=== PATIENT | female | born 1980 | race Caucasian/White ===

== ENCOUNTER 2017-04-08 11:45 | Emergency (ER) ==
[2017-04-08 11:57] VITALS: BP 123/87; TEMP 98.2; BMI 31.2
--- NOTE | 2017-04-08 12:23 | ED.PDOC ---
General ED Provider: Dr. FELIPE CHAVEZ JR Chief Complaint: Abdominal Pain Stated Complaint: SYMPTOMS SINCE 0700 RLQ PAIN, VOMITING[End]98.2 98 16 98% 123/ 87 7/10 VERY ANXIOUS. PTSD. STATES CALLED THE [facility] LAST NIGHT DUE TO ALOT GOING ON WITH EX AND CHILD.[ End ] Time Seen by Physician: 12:19 Mode of Arrival: Walk-In Information Source: Patient Exam Limitations: No limitations Primary Care Provider: [facility] Nursing and Triage Documentation Reviewed and Agree: No Reviewed sepsis parameters & appropriate labs ordered?: Yes System Inflammatory Response Syndrome: Not Applicable Sepsis Protocol: For patient's 13 years and over: Temp is 96.8 and below OR 101 and greater Pulse >90 BPM Resp >20/minute Acutely Altered Mental Status Are patient's symptoms suggestive of a new infection, such as: -Pneumonia -Skin, Soft Tissue -Endocarditis -UTI -Bone, Joint Infection -Implantable Device -Acute Abdominal Infection -Wound Infection -Meningitis -Blood Stream Catheter Infection -Unknown System Inflammatory Response Syndrome: Not Applicable Review of Systems - Review Of Systems Constitutional: Reports: Malaise Eyes: Reports: No symptoms Ears, Nose, Mouth, Throat: Reports: No symptoms Respiratory: Reports: No symptoms Cardiac: Reports: No symptoms GI: Reports: Abdominal pain, Diarrhea, Nausea, Vomiting : Reports: No symptoms Musculoskeletal: Reports: No symptoms Skin: Reports: No symptoms Neurological: Reports: No symptoms Endocrine: Reports: No symptoms Hematologic/Lymphatic: Reports: No symptoms All Other Systems: Other Past Medical History - Past Medical History Endocrine: Reports: None Cardiovascular: Reports: None Respiratory: Reports: None Hematological: Reports: None Gastrointestinal: Reports: None Genitourinary: Reports: None Neuro/Psych: Reports: Anxiety, Depression, PTSD Musculoskeletal: Reports: None Cancer: Reports: None Last Menstrual Period: NA Other Pertinent Past Medical History: hives with ultram - Surgical History General Surgical History: Reports: Hysterectomy ( DX LAP, HYST 2011), Cholecystectomy (2006), Tonsillectomy, Orthopedic (CLUB FOOT RIGHT CORRECTED) - Family History Family History: Reports: Unknown - Social History Smoking Status: Current every day smoker Hx Substance Use: No Alcohol Screening: None - Immunizations Tetanus Shot up to Date: Yes Physical Exam - Physical Exam Appearance: Well-appearing Pain Distress: Moderate Neck: Supple Respiratory: Airway patent, Breath sounds clear, Breath sounds equal, Respirations nonlabored Cardiovascular: RRR, Pulses normal, No rub, No murmur GI/: Soft, No masses, Tender (RLQ WITH REBOUND), Bowel sounds hypoactive Musculoskeletal: Normal strength, ROM intact, No edema, No calf tenderness Skin: Warm, Dry, Normal color Neurological: Sensation intact, Motor intact, Reflexes intact, Cranial nerves intact, Alert, Oriented Psychiatric: Anxious Re-Evaluation - Re-Evaluation Time of Re-Evaluation: 13:56 (patietn comfortable notes not sleeping well not doing well with PTSD, advised follwo up - informs RN not comfortale leaving( request mental health consult)) Status: Improved - Re-Evaluation Time of Re-Evaluation: 15:29 (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- will give two doses ambien) Status: Improved Critical Care Note - Critical Care Note Total Time (mins): 5 Course - Course Hematology/Chemistry: 04/08/17 12:30 04/08/17 12:30 Orders, Labs, Meds: Lab Review 04/08/17 04/08/17 04/08/17 12:30 12:30 12:30 WBC 7.57 RBC 4.79 Hgb 14.1 Hct 41.6 MCV 86.8 MCH 29.4 MCHC 33.9 RDW Coeff of Gricel 13.2 Plt Count 352 Immature Gran % (Auto) 0.1 Neut % (Auto) 68.5 Lymph % (Auto) 21.9 Garza % (Auto) 9.0 Eos % (Auto) 0.4 Baso % (Auto) 0.1 Immature Gran # (Auto) 0.0 Neut # 5.2 Lymph # 1.7 Garza # 0.7 Eos # 0.0 Baso # 0.0 Sodium 142 Potassium 3.1 L Chloride 105 Carbon Dioxide 23 Anion Gap 17.1 BUN 9 Creatinine 0.82 Estimated GFR (MDRD) 79.00 BUN/Creatinine Ratio 10.97 Glucose 85 Calcium 9.7 Total Bilirubin 0.5 AST 15 ALT 12 Alkaline Phosphatase 81 Total Protein 8.0 Albumin 4.3 Globulin 3.7 Albumin/Globulin Ratio 1.16 Amylase 19 L Lipase 20 Procalcitonin < 0.05 TSH Urine Color Urine Clarity Urine pH Ur Specific [place] Urine Protein Urine Glucose (UA) Urine Ketones Urine Blood Urine Nitrite Urine Bilirubin Urine Urobilinogen Ur Leukocyte Esterase Urine Microscopic RBC Ur Squamous Epith Cells Urine Mucus Salicylate Level mg/dL Urine Opiates Screen Ur Oxycodone Screen Urine Methadone Screen Ur Propoxyphene Screen Acetaminophen Ur Barbiturates Screen U Tricyclic Antidepress Ur Phencyclidine Scrn Ur Amphetamine Screen U Methamphetamines Scrn U Benzodiazepines Scrn Urine Cocaine Screen U Cannabinoids Screen Plasma/Serum Alcohol H. pylori IgG Antibody 04/08/17 04/08/17 04/08/17 12:30 12:30 12:30 WBC RBC Hgb Hct MCV MCH MCHC RDW Coeff of Gricel Plt Count Immature Gran % (Auto) Neut % (Auto) Lymph % (Auto) Garza % (Auto) Eos % (Auto) Baso % (Auto) Immature Gran # (Auto) Neut # Lymph # Garza # Eos # Baso # Sodium Potassium Chloride Carbon Dioxide Anion Gap BUN Creatinine Estimated GFR (MDRD) BUN/Creatinine Ratio Glucose Calcium Total Bilirubin AST ALT Alkaline Phosphatase Total Protein Albumin Globulin Albumin/Globulin Ratio Amylase Lipase Procalcitonin TSH 0.914 Urine Color Yellow Urine Clarity Clear Urine pH 5.5 Ur Specific [place] 1.020 Urine Protein Negative Urine Glucose (UA) Negative Urine Ketones 2+ Urine Blood Trace-lysed Urine Nitrite Negative Urine Bilirubin 1+ Urine Urobilinogen 0.2 Ur Leukocyte Esterase Negative Urine Microscopic RBC 2-5 Ur Squamous Epith Cells Not present Urine Mucus 3+ Salicylate Level mg/dL 11.3 Urine Opiates Screen Ur Oxycodone Screen Urine Methadone Screen Ur Propoxyphene Screen Acetaminophen 8 L Ur Barbiturates Screen U Tricyclic Antidepress Ur Phencyclidine Scrn Ur Amphetamine Screen U Methamphetamines Scrn U Benzodiazepines Scrn Urine Cocaine Screen U Cannabinoids Screen Plasma/Serum Alcohol < 10.0 H. pylori IgG Antibody Negative 04/08/17 12:30 WBC RBC Hgb Hct MCV MCH MCHC RDW Coeff of Gricel Plt Count Immature Gran % (Auto) Neut % (Auto) Lymph % (Auto) Garza % (Auto) Eos % (Auto) Baso % (Auto) Immature Gran # (Auto) Neut # Lymph # Garza # Eos # Baso # Sodium Potassium Chloride Carbon Dioxide Anion Gap BUN Creatinine Estimated GFR (MDRD) BUN/Creatinine Ratio Glucose Calcium Total Bilirubin AST ALT Alkaline Phosphatase Total Protein Albumin Globulin Albumin/Globulin Ratio Amylase Lipase Procalcitonin TSH Urine Color Urine Clarity Urine pH Ur Specific [place] Urine Protein Urine Glucose (UA) Urine Ketones Urine Blood Urine Nitrite Urine Bilirubin Urine Urobilinogen Ur Leukocyte Esterase Urine Microscopic RBC Ur Squamous Epith Cells Urine Mucus Salicylate Level mg/dL Urine Opiates Screen Positive Ur Oxycodone Screen Negative Urine Methadone Screen Negative Ur Propoxyphene Screen Negative Acetaminophen Ur Barbiturates Screen Negative U Tricyclic Antidepress Negative Ur Phencyclidine Scrn Negative Ur Amphetamine Screen Negative U Methamphetamines Scrn Negative U Benzodiazepines Scrn Negative Urine Cocaine Screen Negative U Cannabinoids Screen Negative Plasma/Serum Alcohol H. pylori IgG Antibody Orders Category Date Time Status EKG-(ED ONLY) Stat CARDIO 04/08/17 13:54 Completed ED IV/MEDIPORT/POWERPORT .ONCE EMERGENCY 04/08/17 12:24 Active ACETAMINOPHEN Stat LAB 04/08/17 12:30 Completed AMYLASE Stat LAB 04/08/17 12:30 Completed BLOOD ALCOHOL Stat LAB 04/08/17 12:30 Completed CBC W/ AUTO DIFF Stat LAB 04/08/17 12:30 Completed COMPREHENSIVE METABOLIC PANEL Stat LAB 04/08/17 12:30 Completed DRUG SCREEN, URINE, RAPID Stat LAB 04/08/17 12:30 Completed H. PYLORI SCREEN Stat LAB 04/08/17 12:30 Completed LIPASE Stat LAB 04/08/17 12:30 Completed PROCALCITONIN Stat LAB 04/08/17 12:30 Completed SALICYLATE Stat LAB 04/08/17 12:30 Completed THYROID STIMULATING HORMONE Stat LAB 04/08/17 12:30 Completed URINALYSIS C & S IF INDICATED Stat LAB 04/08/17 12:30 Completed 0.9 % Sodium Chloride [Saline Flush] MEDS 04/08/17 12:24 Active 1 syr IVF PRN PRN Morphine Sulfate [Morphine 2 mg/ml Syringe] MEDS 04/08/17 12:55 Discontinued 2 mg IM ONCE STA Morphine Sulfate [Morphine 2 mg/ml Syringe] MEDS 04/08/17 12:24 Discontinued 2 mg IVP ONCE STA Ondansetron HCl/Pf [Zofran 4 mg/2 ml] MEDS 04/08/17 12:55 Discontinued 4 mg IM ONCE STA Ondansetron HCl/Pf [Zofran 4 mg/2 ml] MEDS 04/08/17 12:24 Discontinued 4 mg IVP ONCE STA Sodium Chloride 0.9% [Sodium Chloride] 1,000 ml MEDS 04/08/17 13:[address] ABDOMEN/PELVIS WO CONTRAST Stat RADS 04/08/17 12:24 Completed Medications Generic Name Dose Route Start Last Admin Trade Name Freq PRN Reason Stop Dose Admin Sodium Chloride 1 syr 04/08/17 12:24 Saline Flush IVF PRN PRN To flush IV Discontinued Medications Generic Name Dose Route Start Last Admin Trade Name Freq PRN Reason Stop Dose Admin Sodium Chloride 1,000 mls @ 1,000 mls/hr 04/08/17 13:32 04/08/17 13:50 Sodium Chloride IV 04/08/17 14:31 Not Given BOLUS STA Morphine Sulfate 2 mg 04/08/17 12:24 04/08/17 14:24 Morphine 2 Mg/Ml Syringe IVP 04/08/17 12:25 Not Given ONCE STA Morphine Sulfate 2 mg 04/08/17 12:55 04/08/17 12:55 Morphine 2 Mg/Ml Syringe IM 04/08/17 12:56 2 mg ONCE STA Administration Ondansetron HCl 4 mg 04/08/17 12:24 04/08/17 14:24 Zofran 4 Mg/2 Ml IVP 04/08/17 12:25 Not Given ONCE STA Ondansetron HCl 4 mg 04/08/17 12:55 04/08/17 12:55 Zofran 4 Mg/2 Ml IM 04/08/17 12:56 4 mg ONCE STA Administration Vital Signs: Temp Pulse Resp BP Pulse Ox 04/08/17 11:51 98.2 F 98 H 16 123/87 98 Departure - Departure Time of Disposition: 13:51 Disposition: HOME SELF-CARE Discharge Problem: Abdominal pain, Gastroenteritis Instructions: Gastroenteritis (ED), Acute Nausea and Vomiting (ED), Acute Abdominal Pain (ED) Condition: Good Pt referred to PMD for follow-up: Yes Additional Instructions: clear liquids for 8 hours after nausea or vomiting phenergan for nausea return if worse follow [facility] as [facility] Prescriptions: Promethazine HCl [Phenergan Tab] 25 mg PO QID PRN #12 tablet PRN Reason: Nausea / Vomiting Zolpidem Tartrate [Ambien] 5 mg PO PCHS PRN #4 tablet PRN Reason: Insomnia Allergies/Adverse Reactions: Allergies ciprofloxacin [From Cipro] Adverse Reaction (Verified 04/08/17 11:49) tramadol [From Ultram] Adverse Reaction (Verified 04/08/17 11:49) Home Medications: Ambulatory Orders Citalopram Hydrobromide [Celexa] 40 mg PO DAILY 04/08/17 Promethazine HCl [Phenergan Tab] 25 mg PO QID PRN #12 tablet 04/08/17 Zolpidem Tartrate [Ambien] 5 mg PO PCHS PRN #4 tablet 04/08/17
[2017-04-08 12:38] LABS: BASOPHILS % (AUTO) 0.1 % (0.0-3.0); EOSINOPHILS % (AUTO) 0.4 % (0.0-7.0); HEMATOCRIT 41.6 % (37.0-47.0); HEMOGLOBIN 14.1 g/dl (12.0-16.0); IMMATURE GRANULOCYTE % (AUTO) 0.1 % (0.0-5.0); LYMPHOCYTES # (AUTO) 1.7 K/uL (0.60-3.4); LYMPHOCYTES % (AUTO) 21.9 (10.0-50.0); MEAN CORPUSCULAR HEMOGLOBIN 29.4 pg (27.0-31.0); MEAN CORPUSCULAR HGB CONC 33.9 (31.8-35.4); MEAN CORPUSCULAR VOLUME 86.8 fl (81.0-99.0); MONOCYTES # (AUTO) 0.7 K/uL (0.4-2.0); NEUTROPHILS # (AUTO) 5.2 K/ul (2.0-6.9); NEUTROPHILS % (AUTO) 68.5; PLATELET COUNT 352 10^3/uL (140-440); RED BLOOD COUNT 4.79 10^6/ul (4.20-5.40); WHITE BLOOD COUNT 7.57 K/ul (4.6-10.2)
[2017-04-08 12:42] LABS: BILIRUBIN,URINE 1+ (NEGATIVE); KETONES,URINE 2+ (NEGATIVE); LEUKOCYTE ESTERASE ,URINE Negative (NEGATIVE); NITRITE,URINE Negative (NEGATIVE); PH,URINE 5.5 (5-9); PROTEIN,URINE Negative (NEGATIVE); URINE, BLOOD Trace-lysed (NEGATIVE)
[2017-04-08 12:45] LABS: ADD URINE MICROSCOPIC YES
[2017-04-08 12:55] LABS: ALBUMIN 4.3 g/dL (3.4-5.0); ALBUMIN/GLOBULIN RATIO 1.16; ANION GAP 17.1; BILIRUBIN,TOTAL 0.5 mg/dL (0.00-1.20); BUN/CREATININE RATIO 10.97; CALCIUM 9.7 mg/dL (8.2-10.2); CREATININE 0.82 mg/dL (0.60-1.30); POTASSIUM 3.1 mmol/L (3.5-5.10)
[2017-04-08] MEDS ORDERED: MORPHINE 2 MG/ML SYRINGE IM STA (12:55)
[2017-04-08] MEDS ORDERED: ZOFRAN 4 MG/2 ML IM STA (12:55)
[2017-04-08 12:59] LABS: H. PYLORI ANTIBODY NEGATIVE (NEGATIVE); H.PYLORI INTERNAL QC INTERNAL QC VALID
[2017-04-08] MEDS: MORPHINE 2 MG/ML SYRINGE IVP STA ×2 (12:59→14:24)
[2017-04-08] MEDS: ZOFRAN 4 MG/2 ML IVP STA ×2 (12:59→14:24)
--- NOTE | 2017-04-08 13:13 | CT ---
EXAM: CT of the abdomen pelvis without contrast History: Abdominal pain. Technique: Multiplanar CT images through the abdomen pelvis were obtained without the administration of IV contrast Findings: Lung bases are free of consolidation. No acute osseous abnormalities. No renal stones and no hydronephrosis. Status post cholecystectomy. No focal liver or splenic lesio ns. No peripancreatic inflammation. Adrenal glands are unremarkable. No dilated loops of bowel. T he appendix is not dilated or inflamed. No free air. Bladder is not well distended. No bladder wal l thickening. No ascites. No perirectal inflammation. Uterus is not seen. Impression: No acute intra-abdominal or pelvic process.
[2017-04-08] MEDS ORDERED: SODIUM CHLORIDE 1,000 ML IV STA (13:32)
[2017-04-08 14:09] LABS: COCAIN SCREEN,URINE NEGATIVE (NEGATIVE)
[2017-04-08 14:34] LABS: ACETAMINOPHEN 8 ug/ml (10-30); SALICYLATE 11.3 mg/dL (2.8-20.0)
== END 2017-04-08 15:45 | disposition home or self-care (01) ==
LOC: ED 11:45
DX: K52.9 Noninfective gastroenteritis and colitis, unspecified (principal); R10.31 Right lower quadrant pain; G47.00 Insomnia, unspecified; F17.210 Nicotine dependence, cigarettes, uncomplicated
CPT/HCPCS: 36415; 80053; 80306; 80307; 81001; 82150; 83690; 84145; 84443; 85025; 86677; 93005; 93010; 96372; 99283

== ENCOUNTER 2017-04-17 08:58 | Emergency (ER) ==
[2017-04-17 09:07] VITALS: BP 138/88; TEMP 96.9; BMI 32.8
[2017-04-17] MEDS ORDERED: DUONEB NEB STA (09:09)
[2017-04-17] MEDS ORDERED: PREDNISONE PO STA (09:09)
--- NOTE | 2017-04-17 10:12 | DI ---
EXAM: Chest two view, frontal and lateral views. HISTORY: Cough, chest congestion. COMPARISON: None available. FINDINGS: The heart size is normal. There is no pulmonary vascular congestion. The lungs are clear . No pleural effusion or pneumothorax is seen. No acute osseous abnormality identified. Clips seen in the right upper abdomen. IMPRESSION: No acute cardiopulmonary process.
--- NOTE | 2017-04-24 18:14 | ED.PDOC ---
General ED Provider: Dr. OSIEL GONZALEZ Chief Complaint: Respiratory Complaint Stated Complaint: cough, flu like symptoms Time Seen by Physician: 09:00 Mode of Arrival: Walk-In Information Source: Patient Exam Limitations: No limitations Primary Care Provider: JOEL CARMEN Nursing and Triage Documentation Reviewed and Agree: Yes Reviewed sepsis parameters & appropriate labs ordered?: Yes System Inflammatory Response Syndrome: Not Applicable Sepsis Protocol: For patient's 13 years and over: Temp is 96.8 and below OR 101 and greater Pulse >90 BPM Resp >20/minute Acutely Altered Mental Status Are patient's symptoms suggestive of a new infection, such as: -Pneumonia -Skin, Soft Tissue -Endocarditis -UTI -Bone, Joint Infection -Implantable Device -Acute Abdominal Infection -Wound Infection -Meningitis -Blood Stream Catheter Infection -Unknown System Inflammatory Response Syndrome: Not Applicable Respiratory Complaint Exam - Respiratory Complaint/Exam Onset/Duration: 1 day Symptoms Are: Still present Timing: Intermittent Initial Severity: Moderate Current Severity: Mild Location: Nose, Throat, Chest Character: Reports: Non-productive cough Aggravating: Reports: URI Alleviating: Reports: Spontaneous resolution Associated Signs and Symptoms: Reports: URI, Nasal congestion. Denies: Rapid breathing, Dyspnea, Fever, Chills, Chest pain, Pleuritic chest pain, Wheezing, Hemoptysis, Dizziness, Calf pain, Calf swelling, Edema, Hoarseness, Sinus discomfort, Vomiting, Sore throat, Weight loss, Decreased oral intake, Increased thirst, Increased appetite, Increased urination Related History: Reports: Similar episode History of Healthcare-Acquired Pneumonia: No Related Surgical History: Reports: None Pulmonary Embolism Risk Factors: None Cardiac Risk Factors: Reports: None Pseudomonas Risk Factors: Reports: None Tuberculosis Risk Factors: Reports: None Status Asthmaticus Risk Factors: Reports: None Home Oxygen Use: No Recent Stress Test: No Recent Echo/LV Function: No Current Antibiotic Use: No Current Asthma Medication Use: No Respiratory Distress: None Inadequate Respiratory Effort: No Dysphagia Present: No Stridor Present: No JVD Present: No Retractions: Not Present Grunting Respirations: No Kussmaul Respirations: No Differential Diagnoses: Pneumonia, Bronchitis Review of Systems - Review Of Systems Constitutional: Reports: No symptoms Eyes: Reports: No symptoms Ears, Nose, Mouth, Throat: Reports: No symptoms Respiratory: Reports: Cough Cardiac: Reports: No symptoms GI: Reports: No symptoms : Reports: No symptoms Musculoskeletal: Reports: No symptoms Skin: Reports: No symptoms Neurological: Reports: No symptoms Endocrine: Reports: No symptoms Hematologic/Lymphatic: Reports: No symptoms All Other Systems: Reviewed and Negative Past Medical History - Past Medical History Previously Healthy: Yes Endocrine: Reports: None Cardiovascular: Reports: None Respiratory: Reports: None Hematological: Reports: None Gastrointestinal: Reports: None Genitourinary: Reports: None Neuro/Psych: Reports: Anxiety, Depression, PTSD Musculoskeletal: Reports: None Cancer: Reports: None Last Menstrual Period: n/a Other Pertinent Past Medical History: hives with ultram - Surgical History General Surgical History: Reports: Hysterectomy ( DX LAP, HYST 2011), Cholecystectomy (2005), Tonsillectomy, Orthopedic (CLUB FOOT RIGHT CORRECTED) - Family History Family History: Reports: Unknown - Social History Smoking Status: Current every day smoker Hx Substance Use: No Alcohol Screening: None Physical Exam - Physical Exam Appearance: Well-appearing, No pain distress, Well-nourished Eyes: FARHAN, EOMI, Conjunctiva clear ENT: Ears normal, Nose normal, Oropharynx normal Respiratory: Rhonchi Cardiovascular: RRR, Pulses normal, No rub, No murmur GI/: Soft, Nontender, No masses, Bowel sounds normal, No Organomegaly Musculoskeletal: Normal strength, ROM intact, No edema, No calf tenderness Skin: Warm, Dry, Normal color Neurological: Sensation intact, Motor intact, Reflexes intact, Cranial nerves intact, Alert, Oriented Psychiatric: Affect appropriate, Mood appropriate Interpretation - Radiology Interpretation Radiology Interpretation By: Radiologist Radiology Results: No acute changes Critical Care Note - Critical Care Note Total Time (mins): 0 Course - Course Hematology/Chemistry: 04/17/17 09:20 04/17/17 09:20 Orders, Labs, Meds: Lab Review 04/17/17 04/17/17 04/17/17 09:13 09:20 09:20 WBC 5.56 RBC 4.10 L Hgb 12.1 Hct 36.9 L MCV 90.0 MCH 29.5 MCHC 32.8 RDW Coeff of Gricel 13.3 Plt Count 276 Immature Gran % (Auto) 0.2 Neut % (Auto) 58.1 Lymph % (Auto) 27.5 [place] % (Auto) 10.6 H Eos % (Auto) 3.2 Baso % (Auto) 0.4 Immature Gran # (Auto) 0.0 Neut # 3.2 Lymph # 1.5 [place] # 0.6 Eos # 0.2 Baso # 0.0 Sodium 143 Potassium 4.0 Chloride 106 Carbon Dioxide 32 Anion Gap 9.0 BUN 9 Creatinine 0.81 Estimated GFR (MDRD) 80.00 BUN/Creatinine Ratio 11.11 Glucose 81 Lactic Acid Calcium 8.8 Total Bilirubin < 0.3 AST 11 L ALT 14 Alkaline Phosphatase 83 Total Protein 6.5 Albumin 3.5 Globulin 3.0 Albumin/Globulin Ratio 1.17 Procalcitonin Influenza A (Rapid) Negative by naat Influenza B (Rapid) Negative by naat 04/17/17 04/17/17 09:20 09:20 WBC RBC Hgb Hct MCV MCH MCHC RDW Coeff of Gricel Plt Count Immature Gran % (Auto) Neut % (Auto) Lymph % (Auto) [place] % (Auto) Eos % (Auto) Baso % (Auto) Immature Gran # (Auto) Neut # Lymph # [place] # Eos # Baso # Sodium Potassium Chloride Carbon Dioxide Anion Gap BUN Creatinine Estimated GFR (MDRD) BUN/Creatinine Ratio Glucose Lactic Acid 8.6 Calcium Total Bilirubin AST ALT Alkaline Phosphatase Total Protein Albumin Globulin Albumin/Globulin Ratio Procalcitonin < 0.05 Influenza A (Rapid) Influenza B (Rapid) Orders Category Date Time Status EKG-(ED ONLY) Stat CARDIO 04/17/17 09:06 Completed NEBULIZER TREATMENT Stat CARDIO 04/17/17 09:10 Completed ED IV/MEDIPORT/POWERPORT .ONCE EMERGENCY 04/17/17 09:06 Inactive BLOOD CULTURE Stat LAB 04/17/17 09:45 Completed CBC W/ AUTO DIFF Stat LAB 04/17/17 09:20 Completed COMPREHENSIVE METABOLIC PANEL Stat LAB 04/17/17 09:20 Completed LACTIC ACID Stat LAB 04/17/17 09:20 Completed MOLECULAR FLU A/B Stat LAB 04/17/17 09:13 Completed PROCALCITONIN Stat LAB 04/17/17 09:20 Completed 0.9 % Sodium Chloride [Saline Flush] MEDS 04/17/17 09:07 Discontinued 1 syr IVF PRN PRN Ipratropium/Albuterol Neb [Duoneb] MEDS 04/17/17 09:09 Discontinued 1 vial NEB ONCE STA Prednisone MEDS 04/17/17 09:09 Discontinued 40 mg PO ONCE STA CHEST, 2 VIEWS PA & LAT Stat RADS 04/17/17 09:06 Completed Medications Discontinued Medications Generic Name Dose Route Start Last Admin Trade Name Freq PRN Reason Stop Dose Admin Albuterol/Ipratropium 1 vial 04/17/17 09:09 04/17/17 09:27 Duoneb NEB 04/17/17 09:10 1 vial ONCE STA Administration Prednisone 40 mg 04/17/17 09:09 04/17/17 09:49 Prednisone PO 04/17/17 09:10 40 mg ONCE STA Administration Sodium Chloride 1 syr 04/17/17 09:07 Saline Flush IVF PRN PRN To flush IV Vital Signs: Temp Pulse Resp BP Pulse Ox 04/17/17 08:59 96.9 F L 77 16 138/88 95 Departure - Departure Time of Disposition: 18:15 Disposition: HOME SELF-CARE Discharge Problem: Viral syndrome Instructions: Acute Bronchitis (ED) Condition: Good Pt referred to PMD for follow-up: No Additional Instructions: tussionex 5 ml two times a day as needed for cough (5 days worth) amoxicillin 500 mg one tablet every 8 hours until gone. (#24) follow up with the clinic or doctor of choice for all non-emergent problems. Allergies/Adverse Reactions: Allergies ciprofloxacin [From Cipro] Adverse Reaction (Verified 04/22/17 23:20) tramadol [From Ultram] Adverse Reaction (Verified 04/22/17 23:20) Home Medications: Ambulatory Orders Citalopram Hydrobromide [Celexa] 40 mg PO DAILY 04/08/17 Cyclobenzaprine HCl [Flexeril] 10 mg PO DAILY PRN #10 tablet 04/22/17 Disposition Discussed With: Patient
== END 2017-04-17 11:38 | disposition home or self-care (01) ==
LOC: ED 08:58
DX: B34.9 Viral infection, unspecified (principal); F17.210 Nicotine dependence, cigarettes, uncomplicated
CPT/HCPCS: 36415; 80053; 83605; 84145; 85025; 87040; 87502; 93005; 93010; 94640; 99283

== ENCOUNTER 2017-04-22 23:15 | Emergency (ER) ==
[2017-04-22 23:19] VITALS: BP 139/93; TEMP 97.1; BMI 32.2
--- NOTE | 2017-04-22 23:45 | ED.PDOC ---
General ED Provider: Dr. ASHLEY MEAD Chief Complaint: Extremity Pain/Injury Stated Complaint: Patient states that one hour ago she twisted her right lower leg when she when to turn. Took Motrin but pain still persists. Time Seen by Physician: 23:42 Mode of Arrival: Walk-In Information Source: Patient Exam Limitations: No limitations ( ) Primary Care Provider: [facility] Nursing and Triage Documentation Reviewed and Agree: Yes (.) Reviewed sepsis parameters & appropriate labs ordered?: No (not applicable. ) System Inflammatory Response Syndrome: Not Applicable Sepsis Protocol: For patient's 13 years and over: Temp is 96.8 and below OR 101 and greater Pulse >90 BPM Resp >20/minute Acutely Altered Mental Status Are patient's symptoms suggestive of a new infection, such as: -Pneumonia -Skin, Soft Tissue -Endocarditis -UTI -Bone, Joint Infection -Implantable Device -Acute Abdominal Infection -Wound Infection -Meningitis -Blood Stream Catheter Infection -Unknown Musculoskeletal Complaint Exam - Lower Extremity Complaint/Exam Location of Pain: Reports: Right, Leg Mechanism of Injury: Reports: Other (only twisted while turning with no report of fall or dislocation.) Onset/Duration: 1 hour ago Symptoms Are: Still present Onset of Pain: Reports: Immediate Initial Severity: Severe Current Severity: Moderate Location: Reports: Discrete (mid to lower hardin.) Character: Reports: Aching, Throbbing Alleviating: Reports: None Aggravating: Reports: Movement Able to Bear Weight: Yes (but painful ) Associated Signs and Symptoms: Denies: Swelling, Redness, Bruising, Fever, Weakness, Numbness, Tingling DVT Risk Factors: Reports: None Septic Arthritis Risk Factors: Reports: None Lower Extremity Findings: Present: Tenderness (mid to lower calf musle. ). Absent: Swelling, Ecchymosis, Abnormal contour, Rotation, Ligamentous instability, Laceration, Erythema, Warmth, Blisters Compartment Syndrome Risk Factors: Present: Pain. Absent: Paralysis, Pallor, Pulselessness, Paresthesias Lower Extremities Picture: 1 - Tenderness to palpation. Differential Diagnoses: Strain, Sprain Review of Systems - Review Of Systems Constitutional: Reports: No symptoms Eyes: Reports: No symptoms Ears, Nose, Mouth, Throat: Reports: No symptoms Respiratory: Reports: No symptoms Cardiac: Reports: No symptoms GI: Reports: No symptoms : Reports: No symptoms Musculoskeletal: Reports: Muscle pain (right lower calf musle.) Skin: Reports: No symptoms Neurological: Reports: No symptoms Endocrine: Reports: No symptoms Hematologic/Lymphatic: Reports: No symptoms All Other Systems: Reviewed and Negative Past Medical History - Past Medical History Endocrine: Reports: None Cardiovascular: Reports: None Respiratory: Reports: None Hematological: Reports: None Gastrointestinal: Reports: None Genitourinary: Reports: None Neuro/Psych: Reports: Anxiety, Depression, PTSD Musculoskeletal: Reports: None Cancer: Reports: None Last Menstrual Period: HYSTERECTOMY Other Pertinent Past Medical History: hives with ultram - Surgical History General Surgical History: Reports: Hysterectomy ( DX LAP, HYST 2011), Cholecystectomy (2005), Tonsillectomy, Orthopedic (CLUB FOOT RIGHT CORRECTED) - Family History Family History: Reports: Unknown - Social History Smoking Status: Current every day smoker, Heavy tobacco smoker Hx Substance Use: No Alcohol Screening: None - Immunizations Tetanus Shot up to Date: Yes Physical Exam - Physical Exam Appearance: Well-appearing Ill-appearing: None Pain Distress: Moderate Neck: Supple Respiratory: Airway patent Musculoskeletal: ROM intact, No edema, Calf tenderness (mid to lower posterior ) Skin: Warm, Dry Neurological: Sensation intact, Alert, Oriented Psychiatric: Anxious Interpretation - Radiology Interpretation Radiology Interpretation By: ED Physician Radiology Results: Negative Exam Interpreted: Other (Tib FIB ) Critical Care Note - Critical Care Note Total Time (mins): 0 Course - Course Orders, Labs, Meds: Orders Category Date Time Status Ice [ED APPLY ICE AFFECTED AREA] .ONCE EMERGENCY 04/22/17 23:41 Active Cyclobenzaprine HCl [Flexeril] MEDS 04/23/17 00:02 Discontinued 10 mg .ROUTE .STK-MED ONE Cyclobenzaprine HCl [Flexeril] MEDS 04/22/17 23:58 Discontinued 10 mg PO ONCE STA TIBIA/FIBULA, RIGHT 2 VIEW Stat RADS 04/22/17 23:41 Completed Medications Discontinued Medications Generic Name Dose Route Start Last Admin Trade Name Freq PRN Reason Stop Dose Admin Cyclobenzaprine HCl 10 mg 04/22/17 23:58 04/23/17 00:05 Flexeril PO 04/22/17 23:59 10 mg ONCE STA Administration Vital Signs: Temp Pulse Resp BP Pulse Ox 04/22/17 23:15 97.1 F L 89 18 139/93 H 98 Departure - Departure Time of Disposition: 23:59 Disposition: HOME SELF-CARE Discharge Problem: Injury of lower extremity Strain of right soleus muscle Qualifiers: Encounter type: initial encounter Qualified Code(s): S86.111A - Strain of other muscle(s) and tendon(s) of posterior muscle group at lower leg level, right leg, initial encounter Instructions: Muscle Cramp (ED) Condition: Good Pt referred to PMD for follow-up: Yes Additional Instructions: Take pain medication and muscle relaxers as prescribed Follow up with PCP in the next two -five days. Prescriptions: Cyclobenzaprine HCl [Flexeril] 10 mg PO DAILY PRN #10 tablet PRN Reason: spasms Ibuprofen [Motrin] 600 mg PO Q6H PRN #20 tablet PRN Reason: Analgesia Allergies/Adverse Reactions: Allergies ciprofloxacin [From Cipro] Adverse Reaction (Verified 04/22/17 23:20) tramadol [From Ultram] Adverse Reaction (Verified 04/22/17 23:20) Home Medications: Ambulatory Orders Citalopram Hydrobromide [Celexa] 40 mg PO DAILY 04/08/17 Zolpidem Tartrate [Ambien] 5 mg PO PCHS PRN #4 tablet 04/08/17 Cyclobenzaprine HCl [Flexeril] 10 mg PO DAILY PRN #10 tablet 04/22/17 Ibuprofen [Motrin] 600 mg PO Q6H PRN #20 tablet 04/22/17 Disposition Discussed With: Patient
[2017-04-22] MEDS ORDERED: FLEXERIL PO STA (23:58)
[2017-04-23] MEDS ORDERED: FLEXERIL ONE (00:02)
--- NOTE | 2017-04-23 07:50 | DI ---
EXAM: Two views of the right lower leg HISTORY: Twisting injury. COMPARISON: None FINDINGS: There is no lytic or blastic lesion of the right lower leg. Periosteal reaction is not pre sent. There is no displaced fracture or dislocation. The soft tissues are unremarkable. Limited vie ws of the joint spaces are unremarkable. IMPRESSION: No acute abnormality of the right lower leg.
== END 2017-04-23 00:20 | disposition home or self-care (01) ==
LOC: ED 23:15
DX: S86.111A Strain of other muscle(s) and tendon(s) of posterior muscle group at lower leg level, right leg, initial encounter (principal); X50.1XXA Overexertion from prolonged static or awkward postures, initial encounter; F17.210 Nicotine dependence, cigarettes, uncomplicated
CPT/HCPCS: 99282

== ENCOUNTER 2017-05-10 17:58 | Emergency (ER) ==
[2017-05-10 18:12] VITALS: BP 147/93; TEMP 97.6; BMI 32.5
--- NOTE | 2017-05-10 18:53 | ED.PDOC ---
General ED Provider: Dr. TOMASA BUENO-ER Chief Complaint: Sore Throat Stated Complaint: my nose is running, marilyn had a nose bleed this am, my head hurts and my throat is sore Time Seen by Physician: 18:10 Mode of Arrival: Walk-In Information Source: Patient Exam Limitations: No limitations Primary Care Provider: JULIO MARTINEZ Nursing and Triage Documentation Reviewed and Agree: Yes Reviewed sepsis parameters & appropriate labs ordered?: Yes System Inflammatory Response Syndrome: Not Applicable Sepsis Protocol: For patient's 13 years and over: Temp is 96.8 and below OR 101 and greater Pulse >90 BPM Resp >20/minute Acutely Altered Mental Status Are patient's symptoms suggestive of a new infection, such as: -Pneumonia -Skin, Soft Tissue -Endocarditis -UTI -Bone, Joint Infection -Implantable Device -Acute Abdominal Infection -Wound Infection -Meningitis -Blood Stream Catheter Infection -Unknown Respiratory Complaint Exam - Respiratory Complaint/Exam Onset/Duration: 3 days Symptoms Are: Still present Timing: Constant Initial Severity: Mild Current Severity: Mild Location: Nose, Throat Character: Reports: Non-productive cough Aggravating: Reports: URI Alleviating: Reports: None Associated Signs and Symptoms: Reports: Fever, URI, Nasal congestion, Sinus discomfort, Sore throat. Denies: Rapid breathing, Dyspnea, Chills, Chest pain, Pleuritic chest pain, Wheezing, Hemoptysis, Dizziness, Calf pain, Calf swelling , Edema, Hoarseness, Vomiting, Weight loss, Decreased oral intake, Increased thirst, Increased appetite Related History: Denies: Similar episode History of Healthcare-Acquired Pneumonia: No Home Oxygen Use: No Recent Stress Test: No Recent Echo/LV Function: No Current Antibiotic Use: No Current Asthma Medication Use: No Respiratory Distress: None Inadequate Respiratory Effort: No Dysphagia Present: No Stridor Present: No JVD Present: No Accessory Muscle Use: No Retractions: Not Present Diminished Breath Sounds: No Sinus Tenderness: Frontal Grunting Respirations: No Kussmaul Respirations: No Differential Diagnoses: Bronchitis, Sinusitis, URI, Influenza Review of Systems - Review Of Systems Constitutional: Reports: Fever Eyes: Reports: No symptoms Ears, Nose, Mouth, Throat: Reports: Nose discharge, Throat pain Respiratory: Reports: No symptoms Cardiac: Reports: No symptoms GI: Reports: No symptoms : Reports: No symptoms Musculoskeletal: Reports: No symptoms Skin: Reports: No symptoms Neurological: Reports: No symptoms Endocrine: Reports: No symptoms Hematologic/Lymphatic: Reports: No symptoms All Other Systems: Reviewed and Negative Past Medical History - Past Medical History Previously Healthy: No Endocrine: Reports: None Cardiovascular: Reports: None Respiratory: Reports: None Hematological: Reports: None Gastrointestinal: Reports: None Genitourinary: Reports: None Neuro/Psych: Reports: Anxiety, Depression, PTSD Musculoskeletal: Reports: None Cancer: Reports: None Last Menstrual Period: N/A Other Pertinent Past Medical History: hives with ultram - Surgical History General Surgical History: Reports: Hysterectomy ( DX LAP, HYST 2011), Cholecystectomy (2005), Tonsillectomy, Orthopedic (CLUB FOOT RIGHT CORRECTED) - Family History Family History: Reports: Unknown - Social History Smoking Status: Former smoker Hx Substance Use: No Alcohol Screening: None - Immunizations Tetanus Shot up to Date: Yes Physical Exam - Physical Exam Appearance: Well-appearing, No pain distress, Well-nourished Pain Distress: Mild Eyes: FARHAN, EOMI, Conjunctiva clear ENT: Rhinorrhea, Epistaxis Neck: Supple Respiratory: Airway patent Cardiovascular: RRR, Pulses normal, No rub, No murmur GI/: Soft, Nontender, No masses, Bowel sounds normal, No Organomegaly Musculoskeletal: Normal strength, ROM intact, No edema, No calf tenderness Skin: Warm, Dry, Normal color Neurological: Sensation intact, Motor intact, Reflexes intact, Cranial nerves intact, Alert, Oriented Psychiatric: Affect appropriate, Mood appropriate Critical Care Note - Critical Care Note Total Time (mins): 0 Course - Course Orders, Labs, Meds: Lab Review 05/10/17 18:12 Influenza A (Rapid) Negative by naat Influenza B (Rapid) Negative by naat Orders Category Date Time Status FLU A & B MOLECULAR [FLU A/B MOLECULAR] Stat LAB 05/10/17 18:12 Completed MOLECULAR GROUP A STREP Stat LAB 05/10/17 18:12 Completed Vital Signs: Temp Pulse Resp BP Pulse Ox 05/10/17 18:05 97.6 F 85 16 147/93 H 98 Departure - Departure Time of Disposition: 18:53 Disposition: HOME SELF-CARE Discharge Problem: Sinusitis Qualifiers: Sinusitis location: other Chronicity: acute Recurrence: not specified as recurrent Qualified Code(s): J01.80 - Other acute sinusitis Instructions: Rhinosinusitis (ED) Condition: Good Pt referred to PMD for follow-up: Yes IPMP verified?: No Additional Instructions: augmentin 875mg bid x 10 days, medrol dose pack--f/u with pcp in 72hrs if not improved Allergies/Adverse Reactions: Allergies ciprofloxacin [From Cipro] Adverse Reaction (Verified 04/22/17 23:20) tramadol [From Ultram] Adverse Reaction (Verified 04/22/17 23:20) Home Medications: Ambulatory Orders Citalopram Hydrobromide [Celexa] 40 mg PO DAILY 04/08/17 Disposition Discussed With: Patient
== END 2017-05-10 19:00 | disposition home or self-care (01) ==
LOC: ED 17:58
DX: J01.80 Other acute sinusitis (principal)
CPT/HCPCS: 87502; 87651; 99283

== ENCOUNTER 2017-06-06 15:15 | Emergency (ER) ==
[2017-06-06 15:25] VITALS: BP 165/87; TEMP 98.1; BMI 32.2
--- NOTE | 2017-06-06 16:10 | ED.PDOC ---
General ED Provider: Dr. ASHLEY MEAD Chief Complaint: Rash Stated Complaint: Patient reports rash that started today and feels like prior shingles. States that it hurts for cloths to touch it. Time Seen by Physician: 16:12 Mode of Arrival: Walk-In Information Source: Patient Exam Limitations: No limitations Primary Care Provider: JULIO MARTINEZ Nursing and Triage Documentation Reviewed and Agree: Yes Reviewed sepsis parameters & appropriate labs ordered?: No System Inflammatory Response Syndrome: Not Applicable Sepsis Protocol: For patient's 13 years and over: Temp is 96.8 and below OR 101 and greater Pulse >90 BPM Resp >20/minute Acutely Altered Mental Status Are patient's symptoms suggestive of a new infection, such as: -Pneumonia -Skin, Soft Tissue -Endocarditis -UTI -Bone, Joint Infection -Implantable Device -Acute Abdominal Infection -Wound Infection -Meningitis -Blood Stream Catheter Infection -Unknown System Inflammatory Response Syndrome: Not Applicable Skin Complaint Exam - Skin Rash/Itching Complaint/Exam Onset/Duration: 1 day Symptoms Are: Still present Initial Severity: Moderate Current Severity: Moderate Location: Rigth upper chest to breast area. Potential Exposures: Reports: Unknown Prior Treatment: non Aggravating: Reports: Clothing Alleviating: Reports: None Associated Signs and Symptoms: Denies: Difficulty breathing, Fever, Chills Skin Findings: Present: Petechiae, Purpura Body Picture: 1 - erythematous rash with tenderness to palpation Differential Diagnoses: Varicella Zoster, Viral Exanthema Review of Systems - Review Of Systems Constitutional: Reports: No symptoms Eyes: Reports: No symptoms Ears, Nose, Mouth, Throat: Reports: No symptoms Respiratory: Reports: No symptoms Cardiac: Reports: No symptoms GI: Reports: No symptoms : Reports: No symptoms Musculoskeletal: Reports: No symptoms Skin: Reports: Rash (right breast) Neurological: Reports: No symptoms Endocrine: Reports: No symptoms Hematologic/Lymphatic: Reports: No symptoms All Other Systems: Reviewed and Negative Past Medical History - Past Medical History Previously Healthy: No Endocrine: Reports: None Cardiovascular: Reports: None Respiratory: Reports: None Hematological: Reports: None Gastrointestinal: Reports: None Genitourinary: Reports: None Neuro/Psych: Reports: Anxiety, Depression, PTSD Musculoskeletal: Reports: None Cancer: Reports: None Last Menstrual Period: n/a Other Pertinent Past Medical History: hives with ultram, shingles. - Surgical History General Surgical History: Reports: Hysterectomy ( DX LAP, HYST 2011), Cholecystectomy (2006), Tonsillectomy, Orthopedic (CLUB FOOT RIGHT CORRECTED) - Family History Family History: Reports: Unknown - Social History Smoking Status: Former smoker Hx Substance Use: No Alcohol Screening: None Physical Exam - Physical Exam Appearance: Ill-appearing Pain Distress: Severe Eyes: FARHAN, EOMI, Conjunctiva clear Neck: Supple Respiratory: Airway patent, Breath sounds clear, Breath sounds equal, Respirations nonlabored Cardiovascular: RRR, Pulses normal, No rub, No murmur GI/: Soft, Nontender, No masses, Bowel sounds normal, No Organomegaly Musculoskeletal: Normal strength, ROM intact, No edema, No calf tenderness Skin: Warm Neurological: Sensation intact, Motor intact, Alert, Oriented Psychiatric: Anxious Critical Care Note - Critical Care Note Total Time (mins): 0 Course - Course Vital Signs: Temp Pulse Resp BP Pulse Ox 06/06/17 15:20 98.1 F 89 16 165/87 H 98 Departure - Departure Time of Disposition: 16:14 Disposition: HOME SELF-CARE Discharge Problem: Shingles Qualifiers: Herpes zoster complications: unspecified herpes zoster complication Qualified Code(s): B02.8 - Zoster with other complications Instructions: Shingles (ED) Condition: Stable Pt referred to PMD for follow-up: Yes IPMP verified?: No Additional Instructions: Take medicationa as directed. Follow up with your doctor Prescriptions: Hydrocodone/Acetaminophen [[place] 5-325 Tablet] 1 tab PO Q6HR PRN #12 tablet PRN Reason: PAIN Acyclovir 800 mg PO 5XD #50 tablet Allergies/Adverse Reactions: Allergies ciprofloxacin [From Cipro] Adverse Reaction (Verified 06/06/17 15:25) tramadol [From Ultram] Adverse Reaction (Verified 06/06/17 15:25) Home Medications: Ambulatory Orders Citalopram Hydrobromide [Celexa] 40 mg PO DAILY 04/08/17 Acyclovir 800 mg PO 5XD #50 tablet 06/06/17 Doxepin HCl 10 mg PO BEDTIME 06/06/17 Hydrocodone/Acetaminophen [[place] 5-325 Tablet] 1 tab PO Q6HR PRN #12 tablet
== END 2017-06-06 16:30 | disposition home or self-care (01) ==
LOC: ED 15:15
DX: B02.8 Zoster with other complications (principal)
CPT/HCPCS: 99282

== ENCOUNTER 2017-06-09 12:11 | Emergency (ER) ==
[2017-06-09 12:19] VITALS: BP 138/88; TEMP 97.8; BMI 33.2
--- NOTE | 2017-06-09 14:48 | ED.PDOC ---
General ED Provider: Dr. TOMASA LONDON Chief Complaint: Rash Stated Complaint: Developed rash last week and seen in ER Over weekend, Dx with Shingles and started on Zovirax. Concered rash has not cleared. Apparently was at PCP office earlier today and started on Neurontinn for discomfort. Denies fever, chills or sweats Time Seen by Physician: 14:30 Mode of Arrival: Walk-In Information Source: Patient Primary Care Provider: [facility] Nursing and Triage Documentation Reviewed and Agree: Yes Reviewed sepsis parameters & appropriate labs ordered?: Yes System Inflammatory Response Syndrome: Not Applicable Sepsis Protocol: For patient's 13 years and over: Temp is 96.8 and below OR 101 and greater Pulse >90 BPM Resp >20/minute Acutely Altered Mental Status Are patient's symptoms suggestive of a new infection, such as: -Pneumonia -Skin, Soft Tissue -Endocarditis -UTI -Bone, Joint Infection -Implantable Device -Acute Abdominal Infection -Wound Infection -Meningitis -Blood Stream Catheter Infection -Unknown Review of Systems - Review Of Systems Constitutional: Reports: Malaise Eyes: Reports: No symptoms Ears, Nose, Mouth, Throat: Reports: No symptoms Respiratory: Reports: No symptoms Cardiac: Reports: No symptoms GI: Reports: No symptoms : Reports: No symptoms Musculoskeletal: Reports: No symptoms Skin: Reports: Rash Neurological: Reports: No symptoms, Other (burning site of rash rt ant chest wall site of suspected shingles) Endocrine: Reports: No symptoms Hematologic/Lymphatic: Reports: No symptoms All Other Systems: Reviewed and Negative Past Medical History - Past Medical History Previously Healthy: No Endocrine: Reports: None Cardiovascular: Reports: None Respiratory: Reports: None Hematological: Reports: None Gastrointestinal: Reports: None Genitourinary: Reports: None Neuro/Psych: Reports: Anxiety, Depression, PTSD Musculoskeletal: Reports: None Cancer: Reports: None Last Menstrual Period: n/a Other Pertinent Past Medical History: hives with ultram, shingles. - Surgical History General Surgical History: Reports: Hysterectomy ( DX LAP, HYST 2011), Cholecystectomy (2005), Tonsillectomy, Orthopedic (CLUB FOOT RIGHT CORRECTED) - Family History Family History: Reports: Unknown - Social History Smoking Status: Former smoker Hx Substance Use: No Alcohol Screening: None Physical Exam - Physical Exam Appearance: Well-appearing Ill-appearing: None Pain Distress: Mild Eyes: FARHAN, EOMI, Conjunctiva clear ENT: Ears normal, Nose normal Respiratory: Airway patent, Breath sounds clear Cardiovascular: RRR, Pulses normal GI/: Soft, Nontender, No masses Musculoskeletal: Normal strength, ROM intact, No edema Skin: Warm, Dry (faint erythrematous rash localized rt anterior chest wall Costal region 2-3 3x 4 cm, flats, not vesciular, tender to light touch, neg warm to tocuch) Neurological: Sensation intact, Motor intact Psychiatric: Affect appropriate, Mood appropriate, Anxious Critical Care Note - Critical Care Note Total Time (mins): 0 Course - Course Vital Signs: Temp Pulse Resp BP Pulse Ox 06/09/17 12:13 97.8 F 96 H 16 138/88 97 Departure - Departure Time of Disposition: 14:50 Disposition: HOME SELF-CARE Discharge Problem: Rash and nonspecific skin eruption Instructions: Shingles (ED) Condition: Good Pt referred to PMD for follow-up: Yes IPMP verified?: No Additional Instructions: Remain on previoulsy prescribed meds including Acylovir, Neurontin and Harwood See PCP in 1 week Allergies/Adverse Reactions: Allergies ciprofloxacin [From Cipro] Adverse Reaction (Verified 06/09/17 12:26) tramadol [From Ultram] Adverse Reaction (Verified 06/09/17 12:26) Home Medications: Ambulatory Orders Citalopram Hydrobromide [Celexa] 40 mg PO DAILY 04/08/17 Acyclovir 800 mg PO 5XD #50 tablet 06/06/17 Doxepin HCl 10 mg PO BEDTIME 06/06/17 Hydrocodone/Acetaminophen [[place] 5-325 Tablet] 1 tab PO Q6HR PRN #12 tablet Disposition Discussed With: Patient
== END 2017-06-09 15:30 | disposition home or self-care (01) ==
LOC: ED 12:11
DX: B02.9 Zoster without complications (principal)
CPT/HCPCS: 99282

== ENCOUNTER 2017-06-28 11:18 | Emergency (ER) ==
[2017-06-28 11:26] VITALS: BP 150/90; TEMP 98.7; BMI 34.3
--- NOTE | 2017-06-28 11:36 | ED.PDOC ---
General ED Provider: Dr. OSIEL GONZALEZ Chief Complaint: Rash Stated Complaint: RASH BEHIND LEFT EAR WITH SOME PAIN Time Seen by Physician: 11:20 (SEE PHOTOS) Mode of Arrival: Walk-In Information Source: Patient Exam Limitations: No limitations Primary Care Provider: JOEL OK Nursing and Triage Documentation Reviewed and Agree: Yes Reviewed sepsis parameters & appropriate labs ordered?: Yes System Inflammatory Response Syndrome: Not Applicable Sepsis Protocol: For patient's 13 years and over: Temp is 96.8 and below OR 101 and greater Pulse >90 BPM Resp >20/minute Acutely Altered Mental Status Are patient's symptoms suggestive of a new infection, such as: -Pneumonia -Skin, Soft Tissue -Endocarditis -UTI -Bone, Joint Infection -Implantable Device -Acute Abdominal Infection -Wound Infection -Meningitis -Blood Stream Catheter Infection -Unknown System Inflammatory Response Syndrome: Not Applicable Skin Complaint Exam - Skin Rash/Itching Complaint/Exam Onset/Duration: 1 DAY SEE PHOTOS Symptoms Are: Still present Initial Severity: Mild Current Severity: Mild Potential Exposures: Reports: Unknown Aggravating: Reports: None Alleviating: Reports: None Associated Signs and Symptoms: Denies: Difficulty breathing, Fever, Chills Related History: Similar episode (WAS TOLD IT WAS SHINGLES) Skin Findings: Present: Maculae Differential Diagnoses: Allergic Reaction, Contact Dermatitis, Eczema Review of Systems - Review Of Systems Constitutional: Reports: No symptoms Eyes: Reports: No symptoms Ears, Nose, Mouth, Throat: Reports: No symptoms Respiratory: Reports: No symptoms Cardiac: Reports: No symptoms GI: Reports: No symptoms : Reports: No symptoms Musculoskeletal: Reports: No symptoms Skin: Reports: Rash (SEE PHOTOS) Neurological: Reports: No symptoms Endocrine: Reports: No symptoms Hematologic/Lymphatic: Reports: No symptoms All Other Systems: Reviewed and Negative Past Medical History - Past Medical History Previously Healthy: No Endocrine: Reports: None Cardiovascular: Reports: None Respiratory: Reports: None Hematological: Reports: None Gastrointestinal: Reports: None Genitourinary: Reports: None Neuro/Psych: Reports: Anxiety, Depression, PTSD Musculoskeletal: Reports: None Cancer: Reports: None Last Menstrual Period: na Other Pertinent Past Medical History: hives with ultram, shingles. - Surgical History General Surgical History: Reports: Hysterectomy ( DX LAP, HYST 2011), Cholecystectomy (2005), Tonsillectomy, Orthopedic (CLUB FOOT RIGHT CORRECTED) - Family History Family History: Reports: Unknown - Social History Smoking Status: Current some day smoker Hx Substance Use: No Alcohol Screening: None - Immunizations Tetanus Shot up to Date: Yes Physical Exam - Physical Exam Appearance: Well-appearing, No pain distress, Well-nourished Eyes: FARHAN, EOMI, Conjunctiva clear ENT: Ears normal, Nose normal, Oropharynx normal Respiratory: Airway patent, Breath sounds clear, Breath sounds equal, Respirations nonlabored Cardiovascular: RRR, Pulses normal, No rub, No murmur GI/: Soft, Nontender, No masses, Bowel sounds normal, No Organomegaly Musculoskeletal: Normal strength, ROM intact, No edema, No calf tenderness Skin: Warm, Dry (6 CM RASH MACULAR PINK NO VESICLES ) Neurological: Sensation intact, Motor intact, Reflexes intact, Cranial nerves intact, Alert, Oriented Psychiatric: Affect appropriate, Mood appropriate Critical Care Note - Critical Care Note Total Time (mins): 0 Course - Course Vital Signs: Temp Pulse Resp BP Pulse Ox 06/28/17 11:19 98.7 F 93 H 20 150/90 H 98 Departure - Departure Time of Disposition: 11:36 (SEE PHOTOS) Disposition: HOME SELF-CARE Discharge Problem: Rash Instructions: Viral Exanthem (ED), Acute Rash (ED), Dermatitis (ED) Condition: Good Pt referred to PMD for follow-up: Yes IPMP verified?: No Additional Instructions: Please call your Family Physician as soon as possible to schedule a follow-up appointment.PLEASE RETURN INSTRUCTED Allergies/Adverse Reactions: Allergies ciprofloxacin [From Cipro] Adverse Reaction (Verified 06/28/17 11:27) tramadol [From Ultram] Adverse Reaction (Verified 06/28/17 11:27) Home Medications: Ambulatory Orders Citalopram Hydrobromide [Celexa] 40 mg PO DAILY 04/08/17 Doxepin HCl 10 mg PO BEDTIME 06/06/17 Disposition Discussed With: Patient
== END 2017-06-28 12:12 | disposition home or self-care (01) ==
LOC: ED 11:18
DX: R21 Rash and other nonspecific skin eruption (principal)
CPT/HCPCS: 99282

== ENCOUNTER 2017-07-05 15:43 | Emergency (ER) ==
[2017-07-05 15:43] VITALS: BMI 34.3
[2017-07-05 15:50] VITALS: BP 153/90; TEMP 97.5
--- NOTE | 2017-07-05 16:21 | ED.PDOC ---
General Stated Complaint: Patient is a 36 year old female who comes to the ER with left hairline rash that is painful to touch. Feels like when she had shingles. Time Seen by Physician: 16:19 Mode of Arrival: Walk-In Information Source: Patient Nursing and Triage Documentation Reviewed and Agree: Yes Reviewed sepsis parameters & appropriate labs ordered?: No System Inflammatory Response Syndrome: Not Applicable System Inflammatory Response Syndrome: Not Applicable ED Provider: Dr. ASHLEY MEAD Chief Complaint: Rash Primary Care Provider: JOEL CARMEN Sepsis Protocol: For patient's 13 years and over: Temp is 96.8 and below OR 101 and greater Pulse >90 BPM Resp >20/minute Acutely Altered Mental Status Are patient's symptoms suggestive of a new infection, such as: -Pneumonia -Skin, Soft Tissue -Endocarditis -UTI -Bone, Joint Infection -Implantable Device -Acute Abdominal Infection -Wound Infection -Meningitis -Blood Stream Catheter Infection -Unknown Skin Complaint Exam - Skin Rash/Itching Complaint/Exam Onset/Duration: 1 week Symptoms Are: Still present Initial Severity: Moderate Current Severity: Severe Location: Left occipital area Potential Exposures: Reports: Unknown Prior Treatment: steroid Cream Aggravating: Reports: None Alleviating: Reports: None Associated Signs and Symptoms: Denies: Difficulty breathing, Fever, Chills Related History: Similar episode (as to whenshe had shingles.) Skin Findings: Present: Lesions Body Picture: 1 - area of rash Review of Systems - Review Of Systems Constitutional: Reports: No symptoms Eyes: Reports: No symptoms Ears, Nose, Mouth, Throat: Reports: No symptoms Respiratory: Reports: No symptoms Cardiac: Reports: No symptoms GI: Reports: No symptoms : Reports: No symptoms Musculoskeletal: Reports: No symptoms Skin: Reports: Rash Neurological: Reports: Anxiety, Headache Endocrine: Reports: No symptoms Hematologic/Lymphatic: Reports: No symptoms All Other Systems: Reviewed and Negative Past Medical History - Past Medical History Previously Healthy: No Endocrine: Reports: None Cardiovascular: Reports: None Respiratory: Reports: None Hematological: Reports: None Gastrointestinal: Reports: None Genitourinary: Reports: None Neuro/Psych: Reports: Anxiety, Depression, PTSD Musculoskeletal: Reports: None Cancer: Reports: None Last Menstrual Period: 02/2012 Other Pertinent Past Medical History: hives with ultram, shingles. - Surgical History General Surgical History: Reports: Hysterectomy ( DX LAP, HYST 2011), Cholecystectomy (2005), Tonsillectomy, Orthopedic (CLUB FOOT RIGHT CORRECTED) - Family History Family History: Reports: Unknown - Social History Smoking Status: Current some day smoker Hx Substance Use: No Alcohol Screening: None - Immunizations Tetanus Shot up to Date: Yes Physical Exam - Physical Exam Appearance: Ill-appearing, Well-nourished Ill-appearing: Mild Pain Distress: Moderate Eyes: FARHAN, EOMI, Conjunctiva clear ENT: Ears normal, Nose normal, Oropharynx normal Neck: Supple Respiratory: Airway patent, Breath sounds clear, Breath sounds equal, Respirations nonlabored Cardiovascular: RRR, Pulses normal, No rub, No murmur GI/: Soft, Nontender, No masses, Bowel sounds normal, No Organomegaly Musculoskeletal: Normal strength, ROM intact, No edema, No calf tenderness Skin: Dry Neurological: Sensation intact, Motor intact, Cranial nerves intact, Alert, Oriented Psychiatric: Anxious Critical Care Note - Critical Care Note Total Time (mins): 0 - Course Vital Signs: Temp Pulse Resp BP Pulse Ox 07/05/17 15:44 97.5 F L 95 H 16 153/90 H 97 Departure - Departure Time of Disposition: 16:21 Pt referred to PMD for follow-up: Yes IPMP verified?: No Disposition Discussed With: Patient - Departure Disposition: HOME SELF-CARE Discharge Problem: Rash and nonspecific skin eruption Instructions: Viral Exanthem (ED), Dermatitis (ED) Condition: Stable Additional Instructions: Take medications as prescribed Follow up with PCP in 3-5 days for Dermatology referral. Prescriptions: Cephalexin [Keflex] 500 mg PO Q8HR #20 capsule Acyclovir 800 mg PO 5XD #50 tablet Mupirocin [Bactroban] 1 applic TP BID #50 applic Allergies/Adverse Reactions: Allergies ciprofloxacin [From Cipro] Adverse Reaction (Verified 07/05/17 15:51) tramadol [From Ultram] Adverse Reaction (Verified 07/05/17 15:51) Home Medications: Ambulatory Orders Citalopram Hydrobromide [Celexa] 40 mg PO DAILY 04/08/17 Doxepin HCl 10 mg PO BEDTIME 06/06/17 Acyclovir 800 mg PO 5XD #50 tablet 07/05/17 Cephalexin [Keflex] 500 mg PO Q8HR #20 capsule 07/05/17 Mupirocin [Bactroban] 1 applic TP BID #50 applic 07/05/17
== END 2017-07-05 16:42 | disposition home or self-care (01) ==
LOC: ED 15:43
DX: R21 Rash and other nonspecific skin eruption (principal); F17.210 Nicotine dependence, cigarettes, uncomplicated
CPT/HCPCS: 99282

== ENCOUNTER 2017-07-16 16:22 | Emergency (ER) ==
[2017-07-16 16:27] VITALS: BP 162/98; TEMP 98.1; BMI 34.0
[2017-07-16] MEDS ORDERED: DUONEB NEB STA (17:06)
[2017-07-16] MEDS ORDERED: DECADRON 4 MG/ML SDV IM STA (17:06)
--- NOTE | 2017-07-16 17:11 | ED.PDOC ---
General ED Provider: Dr. OSIEL GONZALEZ Chief Complaint: Respiratory Complaint Stated Complaint: COUGH, FLU LIKE SYMPTOMS Time Seen by Physician: 16:30 Mode of Arrival: Walk-In Information Source: Patient Exam Limitations: No limitations Primary Care Provider: JOEL CARMEN Nursing and Triage Documentation Reviewed and Agree: Yes Reviewed sepsis parameters & appropriate labs ordered?: Yes System Inflammatory Response Syndrome: Not Applicable Sepsis Protocol: For patient's 13 years and over: Temp is 96.8 and below OR 101 and greater Pulse >90 BPM Resp >20/minute Acutely Altered Mental Status Are patient's symptoms suggestive of a new infection, such as: -Pneumonia -Skin, Soft Tissue -Endocarditis -UTI -Bone, Joint Infection -Implantable Device -Acute Abdominal Infection -Wound Infection -Meningitis -Blood Stream Catheter Infection -Unknown System Inflammatory Response Syndrome: Not Applicable Respiratory Complaint Exam - Respiratory Complaint/Exam Onset/Duration: 1 WEEK SMOKE HALH JAIMEE/DAY Symptoms Are: Still present Timing: Intermittent Initial Severity: Moderate Current Severity: Mild Location: Nose, Throat, Chest Character: Reports: Non-productive cough Aggravating: Reports: None Alleviating: Reports: Bronchodilators, Spontaneous resolution Associated Signs and Symptoms: Reports: URI, Nasal congestion History of Healthcare-Acquired Pneumonia: No Related Surgical History: Reports: None Pulmonary Embolism Risk Factors: Smoking Pseudomonas Risk Factors: Reports: None Tuberculosis Risk Factors: Reports: None Status Asthmaticus Risk Factors: Reports: None Home Oxygen Use: No Recent Stress Test: No Recent Echo/LV Function: No Current Antibiotic Use: No Current Asthma Medication Use: No Respiratory Distress: None Inadequate Respiratory Effort: No Dysphagia Present: No Stridor Present: No JVD Present: No Retractions: Not Present Diminished Breath Sounds: No Sinus Tenderness: None Grunting Respirations: No Kussmaul Respirations: No Differential Diagnoses: Pneumonia, Bronchitis, Laryngospasm, URI, Influenza Review of Systems - Review Of Systems Constitutional: Reports: Malaise Eyes: Reports: No symptoms Ears, Nose, Mouth, Throat: Reports: No symptoms Respiratory: Reports: Cough Cardiac: Reports: No symptoms GI: Reports: No symptoms : Reports: No symptoms Musculoskeletal: Reports: No symptoms Skin: Reports: No symptoms Neurological: Reports: No symptoms Endocrine: Reports: No symptoms Hematologic/Lymphatic: Reports: No symptoms All Other Systems: Reviewed and Negative Past Medical History - Past Medical History Previously Healthy: No Endocrine: Reports: None Cardiovascular: Reports: None Respiratory: Reports: None Hematological: Reports: None Gastrointestinal: Reports: None Genitourinary: Reports: None Neuro/Psych: Reports: Anxiety, Depression, PTSD Musculoskeletal: Reports: None Cancer: Reports: None Last Menstrual Period: hysterectomy Other Pertinent Past Medical History: hives with ultram, shingles. - Surgical History General Surgical History: Reports: Hysterectomy ( DX LAP, HYST 2011), Cholecystectomy (2006), Tonsillectomy, Orthopedic (CLUB FOOT RIGHT CORRECTED) - Family History Family History: Reports: Unknown - Social History Smoking Status: Current every day smoker, Light tobacco smoker Hx Substance Use: No Alcohol Screening: None Physical Exam - Physical Exam Appearance: Well-appearing, No pain distress, Well-nourished Eyes: FARHAN, EOMI, Conjunctiva clear ENT: Ears normal, Nose normal, Oropharynx normal Respiratory: Rhonchi, Wheezes Cardiovascular: RRR, Pulses normal, No rub, No murmur GI/: Soft, Nontender, No masses, Bowel sounds normal, No Organomegaly Musculoskeletal: Normal strength, ROM intact, No edema, No calf tenderness Skin: Warm, Dry, Normal color Neurological: Sensation intact, Motor intact, Reflexes intact, Cranial nerves intact, Alert, Oriented Psychiatric: Affect appropriate, Mood appropriate Critical Care Note - Critical Care Note Total Time (mins): 0 Course - Course Orders, Labs, Meds: Orders Category Date Time Status NEBULIZER TREATMENT Stat CARDIO 07/16/17 17:06 Ordered FLU A & B MOLECULAR [FLU A/B MOLECULAR] Stat LAB 07/16/17 16:30 Received Dexamethasone 4 mg/ml Inj [Decadron 4 mg/ml Sdv] MEDS 07/16/17 17:06 Discontinued 4 mg IM ONCE STA Ipratropium/Albuterol Neb [Duoneb] MEDS 07/16/17 17:06 Discontinued 1 vial NEB ONCE STA Medications Discontinued Medications Generic Name Dose Route Start Last Admin Trade Name Freq PRN Reason Stop Dose Admin Albuterol/Ipratropium 1 vial 07/16/17 17:06 Duoneb NEB 07/16/17 17:07 ONCE STA Dexamethasone Sodium Phosphate 4 mg 07/16/17 17:06 07/16/17 17:14 Decadron 4 Mg/Ml Sdv IM 07/16/17 17:07 4 mg ONCE STA Administration Vital Signs: Temp Pulse Resp BP Pulse Ox 07/16/17 16:23 98.1 F 85 16 162/98 H 97 Departure - Departure Time of Disposition: 18:00 Disposition: HOME SELF-CARE Discharge Problem: Viral syndrome Instructions: Viral Syndrome (ED) Condition: Good Pt referred to PMD for follow-up: Yes IPMP verified?: No Additional Instructions: Please call your Family Physician as soon as possible to schedule a follow-up appointment. Allergies/Adverse Reactions: Allergies ciprofloxacin [From Cipro] Adverse Reaction (Verified 07/16/17 16:28) tramadol [From Ultram] Adverse Reaction (Verified 07/16/17 16:28) Home Medications: Ambulatory Orders Citalopram Hydrobromide [Celexa] 40 mg PO DAILY 04/08/17 Doxepin HCl 10 mg PO BEDTIME 06/06/17 Disposition Discussed With: Patient
--- NOTE | 2017-07-17 07:15 | DI ---
EXAM: Chest two view, frontal and lateral views. HISTORY: Cough. COMPARISON: 04/17/2017. FINDINGS: The heart size is normal. There is no pulmonary vascular congestion. The lungs are clear . No pleural effusion or pneumothorax is seen. No acute osseous abnormality identified. Cholecyste ctomy clips noted. Since the prior study, there has been no significant interval change. IMPRESSION: No acute cardiopulmonary process.
== END 2017-07-16 17:55 | disposition home or self-care (01) ==
LOC: ED 16:22
DX: B34.9 Viral infection, unspecified (principal); F17.210 Nicotine dependence, cigarettes, uncomplicated
CPT/HCPCS: 87502; 94640; 96372; 99283

== ENCOUNTER 2017-08-05 16:59 | Emergency (ER) ==
[2017-08-05 17:13] VITALS: BP 134/97; TEMP 97.6; BMI 4949.1
--- NOTE | 2017-08-05 17:45 | ED.PDOC ---
General ED Provider: Dr. OSIEL GONZALEZ Chief Complaint: Headache Stated Complaint: chronic headache Time Seen by Physician: 17:00 Mode of Arrival: Walk-In Information Source: Patient Exam Limitations: No limitations Primary Care Provider: JOEL CARMEN Nursing and Triage Documentation Reviewed and Agree: Yes Reviewed sepsis parameters & appropriate labs ordered?: Yes (see with carlos lebron RN at all times ) System Inflammatory Response Syndrome: Not Applicable Sepsis Protocol: For patient's 13 years and over: Temp is 96.8 and below OR 101 and greater Pulse >90 BPM Resp >20/minute Acutely Altered Mental Status Are patient's symptoms suggestive of a new infection, such as: -Pneumonia -Skin, Soft Tissue -Endocarditis -UTI -Bone, Joint Infection -Implantable Device -Acute Abdominal Infection -Wound Infection -Meningitis -Blood Stream Catheter Infection -Unknown System Inflammatory Response Syndrome: Not Applicable Neurological Complaint Exam - Headache Complaint/Exam Onset: Gradual Duration: 2 days Symptoms Are: Still present Timing: Intermittent Episodes Lasting: Days Worst Headache Ever: No Initial Severity: Moderate Current Severity: Moderate Location: Frontal, Temporal Character: Reports: Throbbing, Radiating Aggravating: Reports: None Alleviating: Reports: None Associated Signs and Symptoms: Denies: Dizziness, Seizure, Nausea, Vomiting, Sinus pressure, Fever, Neck pain, Neck stiffness, Decreased LOC, Visual changes Related History: Reports: Similar episode Related Surgical History: Reports: None SAH Risk Factors: Reports: None Meningitis Risk Factors: Reports: None SDH Risk Factors: Reports: None Temporal Arteritis Risk Factors: Reports: Female, Normal Head CT Within Last 12 Months: Yes Fundoscopic Exam: Present: Normal Findings Papilledema Present: No Temporal Artery Tenderness: Present: None Sinus Tenderness: Present: None TMJ Tenderness: Present: None Glascow Coma Scale (see protocol): 15 Meningeal Signs Positive: No Pain on Passive Flexion-Positive Kernig's: No ROM Limited In: No Limitiations Focal Weakness: Present: None Focal Sensory Loss: Present: None Gait: Normal Nystagmus Present: No Gag Reflex Present: No Differential Diagnoses: Migraine Review of Systems - Review Of Systems Constitutional: Reports: No symptoms Eyes: Reports: No symptoms Ears, Nose, Mouth, Throat: Reports: No symptoms Respiratory: Reports: No symptoms Cardiac: Reports: No symptoms GI: Reports: No symptoms : Reports: No symptoms Musculoskeletal: Reports: No symptoms Skin: Reports: No symptoms Neurological: Reports: Headache Endocrine: Reports: No symptoms Hematologic/Lymphatic: Reports: No symptoms All Other Systems: Reviewed and Negative Past Medical History - Past Medical History Previously Healthy: No Endocrine: Reports: None Cardiovascular: Reports: None Respiratory: Reports: None Hematological: Reports: None Gastrointestinal: Reports: None Genitourinary: Reports: None Neuro/Psych: Reports: Anxiety, Depression, PTSD Musculoskeletal: Reports: None Cancer: Reports: None Last Menstrual Period: hysterectomy Other Pertinent Past Medical History: hives with ultram, shingles. - Surgical History General Surgical History: Reports: Hysterectomy ( DX LAP, HYST 2011), Cholecystectomy (2005), Tonsillectomy, Orthopedic (CLUB FOOT RIGHT CORRECTED) - Family History Family History: Reports: Unknown - Social History Smoking Status: Current every day smoker, Light tobacco smoker Hx Substance Use: No Alcohol Screening: None Physical Exam - Physical Exam Appearance: Well-appearing, No pain distress, Well-nourished Eyes: FARHAN, EOMI, Conjunctiva clear ENT: Ears normal, Nose normal, Oropharynx normal Respiratory: Airway patent, Breath sounds clear, Breath sounds equal, Respirations nonlabored Cardiovascular: RRR, Pulses normal, No rub, No murmur GI/: Soft, Nontender, No masses, Bowel sounds normal, No Organomegaly Musculoskeletal: Normal strength, ROM intact, No edema, No calf tenderness Skin: Warm, Dry, Normal color Neurological: Sensation intact, Motor intact, Reflexes intact, Cranial nerves intact, Alert, Oriented Psychiatric: Affect appropriate, Mood appropriate Critical Care Note - Critical Care Note Total Time (mins): 0 Course - Course Vital Signs: Temp Pulse Resp BP Pulse Ox 08/05/17 17:01 97.6 F 84 20 134/97 H 96 Departure - Departure Time of Disposition: 17:45 Disposition: HOME SELF-CARE Discharge Problem: Headache Instructions: Migraine Headache (ED), Acute Headache (ED) Condition: Good Pt referred to PMD for follow-up: Yes IPMP verified?: No Additional Instructions: Please call your Family Physician as soon as possible to schedule a follow-up appointment. Prescriptions: Hydrocodone/Acetaminophen [[place] 10-325 Tablet] 1 each PO Q8HR #7 tablet Allergies/Adverse Reactions: Allergies ciprofloxacin [From Cipro] Adverse Reaction (Verified 08/05/17 17:09) tramadol [From Ultram] Adverse Reaction (Verified 08/05/17 17:09) Home Medications: Ambulatory Orders Citalopram Hydrobromide [Celexa] 40 mg PO DAILY 04/08/17 Doxepin HCl 10 mg PO BEDTIME 06/06/17 Hydrocodone/Acetaminophen [[place] 10-325 Tablet] 1 each PO Q8HR #7 tablet
== END 2017-08-05 17:48 | disposition home or self-care (01) ==
LOC: ED 16:59
DX: R51 Headache (principal); F17.210 Nicotine dependence, cigarettes, uncomplicated
CPT/HCPCS: 99283

== ENCOUNTER 2017-08-14 08:57 | Emergency (ER) ==
[2017-08-14 09:28] VITALS: BP 136/90; TEMP 98.4; BMI 34.2
[2017-08-14] MEDS ORDERED: DUONEB NEB STA (09:42)
[2017-08-14] MEDS ORDERED: SOLU-MEDROL 125 MG IVP STA (09:42)
--- NOTE | 2017-08-14 11:10 | CT ---
EXAM: CTA of the chest. History: Short of breath Comparison: Chest radiograph 07/16/2017 Technique: Multiplanar CT images through the thorax were obtained following administration of IV con trast. MIP images and 3-D reconstructions were also acquired. Findings: Heart size is within normal limits. No pericardial effusion. No pulmonary arterial fillin g defects. No pathologically enlarged thoracic lymph nodes. Mild diffuse bronchial wall thickening. Bilateral ground-glass opacities with some mosaic attenuation suggesting air trapping. No consolidat ed pneumonia. No pleural fluid and no pneumothorax. No suspicious lung masses or lung nodules. Within the visualized upper abdomen, status post cholecystectomy. No acute osseous abnormalities. Impression: 1. No pulmonary embolism and no consolidated pneumonia. 2. Mild diffuse bronchial wall thickening and bilateral ground-glass opacities with mosaic attenuati on suggesting air trapping.
--- NOTE | 2017-08-14 11:57 | ED.PDOC ---
General ED Provider: Dr. OSIEL GONZALEZ Chief Complaint: Respiratory Complaint Stated Complaint: cough, wheez Time Seen by Physician: 09:30 Mode of Arrival: Walk-In Information Source: Patient Exam Limitations: No limitations Primary Care Provider: JOEL CARMEN Nursing and Triage Documentation Reviewed and Agree: Yes Reviewed sepsis parameters & appropriate labs ordered?: Yes (seen with nursing staff ) System Inflammatory Response Syndrome: Not Applicable Sepsis Protocol: For patient's 13 years and over: Temp is 96.8 and below OR 101 and greater Pulse >90 BPM Resp >20/minute Acutely Altered Mental Status Are patient's symptoms suggestive of a new infection, such as: -Pneumonia -Skin, Soft Tissue -Endocarditis -UTI -Bone, Joint Infection -Implantable Device -Acute Abdominal Infection -Wound Infection -Meningitis -Blood Stream Catheter Infection -Unknown System Inflammatory Response Syndrome: Not Applicable Respiratory Complaint Exam - Respiratory Complaint/Exam Onset/Duration: 3 days Symptoms Are: Resolved Timing: Intermittent Initial Severity: Moderate Current Severity: Mild Location: Nose, Throat, Chest Character: Reports: Non-productive cough Aggravating: Reports: Allergens, URI, Weather, Deep breaths Alleviating: Reports: Upright position, Spontaneous resolution Associated Signs and Symptoms: Reports: URI, Nasal congestion. Denies: Rapid breathing, Dyspnea, Fever, Chills, Chest pain, Pleuritic chest pain, Wheezing, Hemoptysis, Dizziness, Calf pain, Calf swelling, Edema, Hoarseness, Sinus discomfort, Vomiting, Sore throat, Weight loss, Decreased oral intake, Increased thirst, Increased appetite, Increased urination Related History: Reports: Similar episode History of Healthcare-Acquired Pneumonia: No Related Surgical History: Reports: None Pulmonary Embolism Risk Factors: Smoking Cardiac Risk Factors: Reports: Smoking Pseudomonas Risk Factors: Reports: None Tuberculosis Risk Factors: Reports: None Status Asthmaticus Risk Factors: Reports: None Home Oxygen Use: No Recent Stress Test: No Recent Echo/LV Function: No Current Antibiotic Use: No Current Asthma Medication Use: No Respiratory Distress: None Inadequate Respiratory Effort: No Dysphagia Present: No Stridor Present: No JVD Present: No Accessory Muscle Use: No Retractions: Not Present Diminished Breath Sounds: No Sinus Tenderness: None Grunting Respirations: No Kussmaul Respirations: No Differential Diagnoses: Pneumonia, Bronchitis Review of Systems - Review Of Systems Constitutional: Reports: No symptoms Eyes: Reports: No symptoms Ears, Nose, Mouth, Throat: Reports: No symptoms Respiratory: Reports: Cough, Wheezing Cardiac: Reports: No symptoms GI: Reports: No symptoms : Reports: No symptoms Musculoskeletal: Reports: No symptoms Skin: Reports: No symptoms Neurological: Reports: No symptoms Endocrine: Reports: No symptoms Hematologic/Lymphatic: Reports: No symptoms All Other Systems: Reviewed and Negative Past Medical History - Past Medical History Previously Healthy: No Endocrine: Reports: None Cardiovascular: Reports: None Respiratory: Reports: None Hematological: Reports: None Gastrointestinal: Reports: None Genitourinary: Reports: None Neuro/Psych: Reports: Anxiety, Depression, PTSD Musculoskeletal: Reports: None Cancer: Reports: None Last Menstrual Period: NA Other Pertinent Past Medical History: hives with ultram, shingles. - Surgical History General Surgical History: Reports: Hysterectomy ( DX LAP, HYST 2011), Cholecystectomy (2005), Tonsillectomy, Orthopedic (CLUB FOOT RIGHT CORRECTED) - Family History Family History: Reports: Unknown - Social History Smoking Status: Current every day smoker, Light tobacco smoker Hx Substance Use: No Alcohol Screening: None Physical Exam - Physical Exam Appearance: Well-appearing, No pain distress, Well-nourished Eyes: FARHAN, EOMI, Conjunctiva clear ENT: Ears normal, Nose normal, Oropharynx normal Respiratory: Wheezes Cardiovascular: RRR, Pulses normal, No rub, No murmur GI/: Soft, Nontender, No masses, Bowel sounds normal, No Organomegaly Musculoskeletal: Normal strength, ROM intact, No edema, No calf tenderness Skin: Warm, Dry, Normal color Neurological: Sensation intact, Motor intact, Reflexes intact, Cranial nerves intact, Alert, Oriented Psychiatric: Affect appropriate, Mood appropriate Interpretation - Radiology Interpretation Radiology Interpretation By: Radiologist Radiology Results: No acute changes Critical Care Note - Critical Care Note Total Time (mins): 0 Course - Course Hematology/Chemistry: 08/14/17 09:50 08/14/17 09:50 Orders, Labs, Meds: Lab Review 08/14/17 08/14/17 08/14/17 09:50 09:50 10:00 WBC 6.46 RBC 4.51 Hgb 13.2 Hct 39.8 MCV 88.2 MCH 29.3 MCHC 33.2 RDW Coeff of Gricel 13.0 Plt Count 327 Immature Gran % (Auto) 0.3 Neut % (Auto) 67.4 Lymph % (Auto) 18.6 [place] % (Auto) 11.8 H Eos % (Auto) 1.7 Baso % (Auto) 0.2 Immature Gran # (Auto) 0.0 Neut # (Auto) 4.4 Lymph # (Auto) 1.2 [place] # (Auto) 0.8 Eos # (Auto) 0.1 Baso # (Auto) 0.0 Sodium 141 Potassium 4.3 Chloride 104 Carbon Dioxide 26 Anion Gap 15.3 BUN 9 Creatinine 0.78 Estimated GFR (MDRD) 84.00 BUN/Creatinine Ratio 11.53 Glucose 91 Calcium 9.2 Total Bilirubin 0.5 AST 16 ALT 12 Alkaline Phosphatase 81 Total Protein 7.3 Albumin 3.8 Globulin 3.5 Albumin/Globulin Ratio 1.09 Influ A Molecular Assay Negative by naat Influ B Molecular Assay Negative by naat Orders Category Date Time Status NEBULIZER TREATMENT Stat CARDIO 08/14/17 09:42 Completed NPO REMINDER: IMAGING ONCE CARE 08/14/17 09:45 Active ED IV/MEDIPORT/POWERPORT .ONCE EMERGENCY 08/14/17 09:42 Active ED IV/MEDIPORT/POWERPORT .ONCE EMERGENCY 08/14/17 09:45 Active CBC W/ AUTO DIFF Stat LAB 08/14/17 09:50 Completed COMPREHENSIVE METABOLIC PANEL Stat LAB 08/14/17 09:50 Completed MOLECULAR FLU A & B [FLU A/B MOLECULAR] Stat LAB 08/14/17 10:00 Completed MOLECULAR GROUP A STREP Stat LAB 08/14/17 10:00 Completed URINE Stat LAB 08/13/17 09:57 Stop Req 0.9 % Sodium Chloride [Saline Flush] MEDS 08/14/17 09:42 Active 1 syr IVF PRN PRN 0.9 % Sodium Chloride [Saline Flush] MEDS 08/14/17 09:45 Active 1 syr IVF PRN PRN Ipratropium/Albuterol Neb [Duoneb] MEDS 08/14/17 09:42 Discontinued 1 vial NEB ONCE STA Methylprednisolone Sod Succ/Pf [Solu-Medrol 125 mg] MEDS 08/14/17 09:42 Discontinued 125 mg IVP ONCE STA CT CHEST PE PROTOCOL Stat RADS 08/14/17 09:45 Completed Medications Generic Name Dose Route Start Last Admin Trade Name Freq PRN Reason Stop Dose Admin Sodium Chloride 1 syr 08/14/17 09:42 Saline Flush IVF PRN PRN To flush IV Sodium Chloride 1 syr 08/14/17 09:45 08/14/17 09:54 Saline Flush IVF 1 syr PRN PRN Administration To flush IV Discontinued Medications Generic Name Dose Route Start Last Admin Trade Name Freq PRN Reason Stop Dose Admin Albuterol/Ipratropium 1 vial 08/14/17 09:42 08/14/17 10:00 Duoneb NEB 08/14/17 09:43 1 vial ONCE STA Administration Methylprednisolone Sodium Succinate 125 mg 08/14/17 09:42 08/14/17 09:55 Solu-Medrol 125 Mg IVP 08/14/17 09:43 125 mg ONCE STA Administration Vital Signs: Temp Pulse Resp BP Pulse Ox 08/14/17 09:26 98.4 F 86 18 136/90 96 Departure - Departure Time of Disposition: 11:57 Disposition: HOME SELF-CARE Discharge Problem: Viral syndrome Instructions: Wheezing (ED), Reactive Airways Disease (ED) Condition: Good Pt referred to PMD for follow-up: Yes IPMP verified?: No Additional Instructions: Please call your Family Physician as soon as possible to schedule a follow-up appointment. Allergies/Adverse Reactions: Allergies ciprofloxacin [From Cipro] Adverse Reaction (Verified 08/14/17 09:25) tramadol [From Ultram] Adverse Reaction (Verified 08/14/17 09:25) Home Medications: Ambulatory Orders Citalopram Hydrobromide [Celexa] 40 mg PO DAILY 04/08/17 Doxepin HCl 10 mg PO BEDTIME 06/06/17 Benzonatate [Tessalon Perles] 200 mg PO TID PRN 08/14/17 Disposition Discussed With: Patient
== END 2017-08-14 12:10 | disposition home or self-care (01) ==
LOC: ED 08:57
DX: B34.9 Viral infection, unspecified (principal); F17.210 Nicotine dependence, cigarettes, uncomplicated
CPT/HCPCS: 36415; 80053; 85025; 87502; 87651; 94640; 96374; 99283

== ENCOUNTER 2017-08-23 19:29 | Emergency (ER) ==
[2017-08-23] MEDS ORDERED: TORADOL IM STA (19:31)
[2017-08-23] MEDS ORDERED: MORPHINE 4 MG/ML SYRINGE IM STA (19:31)
[2017-08-23] MEDS ORDERED: PHENERGAN 25 MG/ML VIAL IM STA (19:31)
--- NOTE | 2017-08-23 19:37 | ED.PDOC ---
General ED Provider: Dr. TOMASA BUENO-ER Chief Complaint: Headache Stated Complaint: i have a headache--i think its a migraine Time Seen by Physician: 19:30 Mode of Arrival: Walk-In Information Source: Patient Primary Care Provider: JOEL MA Nursing and Triage Documentation Reviewed and Agree: Yes Reviewed sepsis parameters & appropriate labs ordered?: Yes System Inflammatory Response Syndrome: Not Applicable Sepsis Protocol: For patient's 13 years and over: Temp is 96.8 and below OR 101 and greater Pulse >90 BPM Resp >20/minute Acutely Altered Mental Status Are patient's symptoms suggestive of a new infection, such as: -Pneumonia -Skin, Soft Tissue -Endocarditis -UTI -Bone, Joint Infection -Implantable Device -Acute Abdominal Infection -Wound Infection -Meningitis -Blood Stream Catheter Infection -Unknown Neurological Complaint Exam - Headache Complaint/Exam Onset: Gradual Duration: several days Symptoms Are: Still present Timing: Constant Worst Headache Ever: No Initial Severity: Mild Current Severity: Moderate Location: Diffuse Character: Reports: Dull, Throbbing, Pressure, Typical headache, Migraine Aggravating: Reports: Bright lights Associated Signs and Symptoms: Reports: Nausea. Denies: Dizziness, Seizure, Vomiting, Sinus pressure, Fever, Neck pain, Neck stiffness, Decreased LOC, Visual changes Related History: Reports: Similar episode. Denies: Recent trauma, Remote trauma SAH Risk Factors: Reports: None Meningitis Risk Factors: Reports: None SDH Risk Factors: Reports: None Temporal Arteritis Risk Factors: Reports: Female, Normal Head CT Within Last 12 Months: No Fundoscopic Exam: Present: Normal Findings Papilledema Present: No Temporal Artery Tenderness: Present: None Sinus Tenderness: Present: None TMJ Tenderness: Present: None Glascow Coma Scale (see protocol): 15 Meningeal Signs Positive: No Pain on Passive Flexion-Positive Kernig's: No ROM Limited In: No Limitiations Focal Weakness: Present: None Focal Sensory Loss: Present: None Gait: Normal Nystagmus Present: No Gag Reflex Present: Yes [id number]: Normal Findings Romberg Test Positive: No Babinski Sign: Negative Right, Negative Left Heel to Toe Normal: Yes Differential Diagnoses: Migraine Review of Systems - Review Of Systems Constitutional: Reports: No symptoms Eyes: Reports: No symptoms Ears, Nose, Mouth, Throat: Reports: No symptoms Respiratory: Reports: No symptoms Cardiac: Reports: No symptoms GI: Reports: Nausea : Reports: No symptoms Musculoskeletal: Reports: No symptoms Skin: Reports: No symptoms Neurological: Reports: Headache Endocrine: Reports: No symptoms Hematologic/Lymphatic: Reports: No symptoms All Other Systems: Reviewed and Negative Past Medical History - Past Medical History Previously Healthy: No Endocrine: Reports: None Cardiovascular: Reports: None Respiratory: Reports: None Hematological: Reports: None Gastrointestinal: Reports: None Genitourinary: Reports: None Neuro/Psych: Reports: Anxiety, Depression, PTSD Musculoskeletal: Reports: None Cancer: Reports: None Other Pertinent Past Medical History: hives with ultram, shingles. - Surgical History General Surgical History: Reports: Hysterectomy ( DX LAP, HYST 2011), Cholecystectomy (2005), Tonsillectomy, Orthopedic (CLUB FOOT RIGHT CORRECTED) - Family History Family History: Reports: Unknown - Social History Smoking Status: Current every day smoker, Light tobacco smoker Hx Substance Use: No Alcohol Screening: None Physical Exam - Physical Exam Appearance: Well-appearing, No pain distress, Well-nourished Eyes: FARHAN, EOMI, Conjunctiva clear ENT: Ears normal Neck: Supple Respiratory: Airway patent, Breath sounds clear, Breath sounds equal, Respirations nonlabored Cardiovascular: RRR, Pulses normal, No rub, No murmur GI/: Soft, Nontender, No masses, Bowel sounds normal, No Organomegaly Musculoskeletal: Normal strength Skin: Warm, Dry, Normal color Neurological: Alert, Oriented Psychiatric: Affect appropriate, Mood appropriate Re-Evaluation - Re-Evaluation Time of Re-Evaluation: 20:06 Status: Improved Vital Signs Stable: Yes Pain Level: 2 Appearance: NAD Lungs: Clear Skin: Warm and Dry Neuro: Alert and Oriented X3 CV: RRR Critical Care Note - Critical Care Note Total Time (mins): 0 Course - Course Orders, Labs, Meds: Orders Category Date Time Status Ketorolac Tromethamine [Toradol] MEDS 08/23/17 19:31 Discontinued 60 mg IM ONCE STA Morphine Sulfate [Morphine 4 mg/ml Syringe] MEDS 08/23/17 19:31 Discontinued 4 mg IM ONCE STA Promethazine HCl [Phenergan 25 mg/ml Vial] MEDS 08/23/17 19:31 Discontinued 25 mg IM ONCE STA CT HEAD W/O CONTRAST Stat RADS 08/23/17 19:31 Completed Medications Discontinued Medications Generic Name Dose Route Start Last Admin Trade Name Freq PRN Reason Stop Dose Admin Ketorolac Tromethamine 60 mg 08/23/17 19:31 08/23/17 19:54 Toradol IM 08/23/17 19:32 60 mg ONCE STA Administration Morphine Sulfate 4 mg 08/23/17 19:31 08/23/17 19:53 Morphine 4 Mg/Ml Syringe IM 08/23/17 19:32 4 mg ONCE STA Administration Promethazine HCl 25 mg 08/23/17 19:31 08/23/17 19:53 Phenergan 25 Mg/Ml Vial IM 08/23/17 19:32 25 mg ONCE STA Administration Vital Signs: Temp Pulse Resp BP Pulse Ox 08/23/17 19:32 97.2 F L 80 20 148/88 H 98 Departure - Departure Time of Disposition: 20:06 Disposition: HOME SELF-CARE Discharge Problem: Migraine Qualifiers: Migraine type: unspecified Status migrainosus presence: without status migrainosus Intractability: not intractable Qualified Code(s): G43.909 - Migraine, unspecified, not intractable, without status migrainosus Instructions: Migraine Headache (ED) Condition: Good Pt referred to PMD for follow-up: Yes IPMP verified?: No Additional Instructions: f/u with pcp Allergies/Adverse Reactions: Allergies ciprofloxacin [From Cipro] Adverse Reaction (Verified 08/23/17 19:37) tramadol [From Ultram] Adverse Reaction (Verified 08/23/17 19:37) Home Medications: Ambulatory Orders Citalopram Hydrobromide [Celexa] 40 mg PO DAILY 04/08/17 Doxepin HCl 10 mg PO BEDTIME 06/06/17 Disposition Discussed With: Patient
[2017-08-23 19:39] VITALS: BP 148/88; TEMP 97.2; BMI 33.2
--- NOTE | 2017-08-23 20:04 | CT ---
Exam: CT of the brain without intravenous contrast. Comparison: None available. Reason for exam: Headache. FINDINGS: No acute intracranial hemorrhage, mass effect, ventricular dilatation, or territorial infa rction. The quadrigeminal and ambient cisterns are patent. There is no extraaxial fluid collection. The intracranial structures appear midline. The calvarium is intact without depressed skull fractu re. No air-fluid levels are seen in the paranasal sinuses. Impression: No acute intracranial findings. Report faxed at [phone] hours on 08/23/2017.
== END 2017-08-23 20:15 | disposition home or self-care (01) ==
LOC: ED 19:29
DX: G43.909 Migraine, unspecified, not intractable, without status migrainosus (principal); F17.210 Nicotine dependence, cigarettes, uncomplicated
CPT/HCPCS: 96372; 99283

== ENCOUNTER 2017-08-27 06:34 | Emergency (ER) ==
[2017-08-27 06:40] VITALS: BP 153/110; TEMP 98.1; BMI 31.2
[2017-08-27] MEDS ORDERED: CATAPRES PO STA ×2 (06:41→06:47)
[2017-08-27] MEDS ORDERED: DECADRON 4 MG/ML SDV IM STA (06:41)
--- NOTE | 2017-08-27 06:41 | ED.PDOC ---
General ED Provider: Dr. BRUNA CONSTANTINO Chief Complaint: Rash Stated Complaint: Came for the rash on the left side of the neck, burning type. alos BP is elevated, no headache, not been dizzi Time Seen by Physician: 06:38 Mode of Arrival: Walk-In Information Source: Patient Primary Care Provider: [facility] Nursing and Triage Documentation Reviewed and Agree: Yes Reviewed sepsis parameters & appropriate labs ordered?: No System Inflammatory Response Syndrome: Not Applicable Sepsis Protocol: For patient's 13 years and over: Temp is 96.8 and below OR 101 and greater Pulse >90 BPM Resp >20/minute Acutely Altered Mental Status Are patient's symptoms suggestive of a new infection, such as: -Pneumonia -Skin, Soft Tissue -Endocarditis -UTI -Bone, Joint Infection -Implantable Device -Acute Abdominal Infection -Wound Infection -Meningitis -Blood Stream Catheter Infection -Unknown Skin Complaint Exam - Skin Rash/Itching Complaint/Exam Symptoms Are: Still present Initial Severity: Mild Current Severity: Mild Potential Exposures: Reports: Unknown Aggravating: Reports: None Alleviating: Reports: None Differential Diagnoses: Allergic Reaction, Contact Dermatitis, Drug Rash Review of Systems - Review Of Systems Constitutional: Reports: No symptoms Eyes: Reports: No symptoms Ears, Nose, Mouth, Throat: Reports: No symptoms Respiratory: Reports: No symptoms Cardiac: Reports: No symptoms GI: Reports: No symptoms : Reports: No symptoms Musculoskeletal: Reports: No symptoms Skin: Reports: No symptoms Neurological: Reports: No symptoms Endocrine: Reports: No symptoms Hematologic/Lymphatic: Reports: No symptoms All Other Systems: Reviewed and Negative Past Medical History - Past Medical History Previously Healthy: No Endocrine: Reports: None Cardiovascular: Reports: Hypertension Respiratory: Reports: None Hematological: Reports: None Gastrointestinal: Reports: None Genitourinary: Reports: None Neuro/Psych: Reports: Anxiety, Depression, PTSD Musculoskeletal: Reports: None Cancer: Reports: None Last Menstrual Period: HYSTERECTOMY Other Pertinent Past Medical History: hives with ultram, shingles. - Surgical History General Surgical History: Reports: Hysterectomy ( DX LAP, HYST 2011), Cholecystectomy (2006), Tonsillectomy, Orthopedic (CLUB FOOT RIGHT CORRECTED) - Family History Family History: Reports: Unknown - Social History Smoking Status: Current every day smoker, Light tobacco smoker Smoking Cessation Counseling Time: > 3 min - 10 min Hx Substance Use: No Alcohol Screening: None - Immunizations Tetanus Shot up to Date: Yes Physical Exam - Physical Exam Appearance: Well-appearing, No pain distress, Well-nourished Eyes: FARHAN, EOMI, Conjunctiva clear ENT: Ears normal, Nose normal, Oropharynx normal Respiratory: Airway patent, Breath sounds clear, Breath sounds equal, Respirations nonlabored Cardiovascular: RRR, Pulses normal, No rub, No murmur GI/: Soft, Nontender, No masses, Bowel sounds normal, No Organomegaly Musculoskeletal: Normal strength, ROM intact, No edema, No calf tenderness Skin: Warm, Dry, Normal color Neurological: Sensation intact, Motor intact, Reflexes intact, Cranial nerves intact, Alert, Oriented Psychiatric: Affect appropriate, Mood appropriate Critical Care Note - Critical Care Note Total Time (mins): 20 Course - Course Vital Signs: Temp Pulse Resp BP Pulse Ox 08/27/17 06:34 98.1 F 86 20 153/110 H 98 Departure - Departure Time of Disposition: 06:44 Disposition: HOME SELF-CARE Discharge Problem: Pruritic rash Instructions: Contact Dermatitis (ED) Condition: Stable Pt referred to PMD for follow-up: Yes IPMP verified?: No Additional Instructions: skin hygiene if not better needs f/u with PMD Prescriptions: Prednisone 10 mg PO BIDWM #14 tablet Allergies/Adverse Reactions: Allergies ciprofloxacin [From Cipro] Adverse Reaction (Verified 08/27/17 06:39) tramadol [From Ultram] Adverse Reaction (Verified 08/27/17 06:39) Home Medications: Ambulatory Orders Citalopram Hydrobromide [Celexa] 40 mg PO DAILY 04/08/17 Doxepin HCl 10 mg PO BEDTIME 06/06/17 Prednisone 10 mg PO BIDWM #14 tablet 08/27/17 Disposition Discussed With: Patient
== END 2017-08-27 07:35 | disposition home or self-care (01) ==
LOC: ED 06:34
DX: R21 Rash and other nonspecific skin eruption (principal); L29.9 Pruritus, unspecified; I10 Essential (primary) hypertension; F17.210 Nicotine dependence, cigarettes, uncomplicated
CPT/HCPCS: 96372; 99282

== ENCOUNTER 2017-09-01 09:38 | Emergency (ER) | payer OTHER ==
[2017-09-01 09:38] VITALS: BMI 33.2
[2017-09-01 09:46] VITALS: BP 138/87; TEMP 96.9
--- NOTE | 2017-09-01 10:07 | ED.PDOC ---
General ED Provider: Dr. TOMASA LONDON Chief Complaint: Knee Pain/Injury Stated Complaint: Rt Knee Pain. Onset this morning when attempting to get into her place of employment/Was ambulating and came down on rt foot and felt Rt Knee Pop then went out on here. Did not fall to ground was able to catch herself but felt immediate pain Time Seen by Physician: 09:50 Mode of Arrival: Walk-In Information Source: Patient Exam Limitations: No limitations Primary Care Provider: [facility] Nursing and Triage Documentation Reviewed and Agree: Yes Reviewed sepsis parameters & appropriate labs ordered?: Yes System Inflammatory Response Syndrome: Not Applicable Sepsis Protocol: For patient's 13 years and over: Temp is 96.8 and below OR 101 and greater Pulse >90 BPM Resp >20/minute Acutely Altered Mental Status Are patient's symptoms suggestive of a new infection, such as: -Pneumonia -Skin, Soft Tissue -Endocarditis -UTI -Bone, Joint Infection -Implantable Device -Acute Abdominal Infection -Wound Infection -Meningitis -Blood Stream Catheter Infection -Unknown System Inflammatory Response Syndrome: Not Applicable Review of Systems - Review Of Systems Constitutional: Reports: No symptoms Eyes: Reports: No symptoms Ears, Nose, Mouth, Throat: Reports: No symptoms Respiratory: Reports: No symptoms Cardiac: Reports: No symptoms GI: Reports: No symptoms : Reports: No symptoms Musculoskeletal: Reports: No symptoms, Joint pain, Joint swelling Skin: Reports: No symptoms Neurological: Reports: No symptoms Endocrine: Reports: No symptoms Hematologic/Lymphatic: Reports: No symptoms All Other Systems: Reviewed and Negative Past Medical History - Past Medical History Previously Healthy: No Endocrine: Reports: None Cardiovascular: Reports: Hypertension Respiratory: Reports: None Hematological: Reports: None Gastrointestinal: Reports: None Genitourinary: Reports: None Neuro/Psych: Reports: Anxiety, Depression, PTSD Musculoskeletal: Reports: None Cancer: Reports: None Last Menstrual Period: NA Other Pertinent Past Medical History: hives with ultram, shingles. - Surgical History General Surgical History: Reports: Hysterectomy ( DX LAP, HYST 2011), Cholecystectomy (2005), Tonsillectomy, Orthopedic (CLUB FOOT RIGHT CORRECTED) - Family History Family History: Reports: Unknown - Social History Smoking Status: Current every day smoker, Light tobacco smoker Hx Substance Use: No Alcohol Screening: None Physical Exam - Physical Exam Appearance: Well-appearing, No pain distress, Well-nourished Eyes: FARHAN, EOMI, Conjunctiva clear ENT: Ears normal, Nose normal, Oropharynx normal Respiratory: Airway patent, Breath sounds clear, Breath sounds equal, Respirations nonlabored Cardiovascular: RRR, Pulses normal, No rub, No murmur GI/: Soft, Nontender, No masses, Bowel sounds normal, No Organomegaly Musculoskeletal: Normal strength (positive ant drawer testing rt knee ), ROM intact (Bilat knee joint), No edema, No calf tenderness, Edema (minimal rt knee- medial) Skin: Warm, Dry, Normal color Neurological: Sensation intact, Motor intact, Reflexes intact, Cranial nerves intact, Alert, Oriented Psychiatric: Affect appropriate, Mood appropriate Critical Care Note - Critical Care Note Total Time (mins): 0 Course - Course Orders, Labs, Meds: Orders Category Date Time Status CRUTCHES [ED CRUTCHES] .ONCE EMERGENCY 09/01/17 12:00 Active ED SPLINT APPLICATION .ONCE EMERGENCY 09/01/17 12:00 Active Ketorolac Tromethamine [Toradol] MEDS 09/01/17 10:09 Discontinued 30 mg IM ONCE STA KNEE, RIGHT 4 VIEWS Stat RADS 09/01/17 10:10 Completed Medications Discontinued Medications Generic Name Dose Route Start Last Admin Trade Name Freq PRN Reason Stop Dose Admin Ketorolac Tromethamine 30 mg 09/01/17 10:09 09/01/17 10:20 Toradol IM 09/01/17 10:10 30 mg ONCE STA Administration Vital Signs: Temp Pulse Resp BP Pulse Ox 09/01/17 09:42 96.9 F L 104 H 16 138/87 98 Departure - Departure Time of Disposition: 11:50 Disposition: HOME SELF-CARE Discharge Problem: Strain of right knee Instructions: Knee Pain (ED), Knee Immobilizer (ED) Condition: Good Pt referred to PMD for follow-up: Yes (See PCP in next 3-5 days) IPMP verified?: No Prescriptions: Hydrocodone/Acetaminophen [[place] 5-325 Tablet] 1 each PO Q6HR PRN #10 tablet PRN Reason: Severe knee pain Allergies/Adverse Reactions: Allergies ciprofloxacin [From Cipro] Adverse Reaction (Verified 09/01/17 09:39) tramadol [From Ultram] Adverse Reaction (Verified 09/01/17 09:39) Home Medications: Ambulatory Orders Citalopram Hydrobromide [Celexa] 40 mg PO DAILY 04/08/17 Doxepin HCl 10 mg PO BEDTIME 06/06/17 Hydrocodone/Acetaminophen [[place] 5-325 Tablet] 1 each PO Q6HR PRN #10 tablet Rizatriptan Benzoate [Maxalt] 10 mg PO BID PRN 09/01/17 Disposition Discussed With: Patient (Refrain from working for next 6 days) Musculoskeletal Complaint Exam - Knee Pain Complaint/Exam Symptoms Are: Still present Onset of Pain: Reports: Immediate Initial Severity: Moderate Current Severity: Moderate Location: Reports: Discrete Character: Reports: Sharp, Aching Alleviating: Reports: Rest Aggravating: Reports: Movement, Weight bearing Associated Signs and Symptoms: Reports: Swelling Able to Bear Weight: Yes Septic Arthritis Risk Factors: Reports: None Gout Risk Factors: Reports: None Related Surgical History: Reports: Right Knee Knee Findings: Present: Swelling, Ligamentous instability, Tenderness Tenderness: Present: Pre-patellar, Joint Lata Test Positive: Yes Limited Range of Motion: Absent: Active, Passive, Flexion, Extension, Patellar apprehension Differential Diagnoses: Sprain, Strain
[2017-09-01] MEDS ORDERED: TORADOL IM STA (10:09)
--- NOTE | 2017-09-01 11:32 | DI ---
Exam: Four x-rays of the right knee. Comparison: None available. Reason for exam: Pain in right knee FINDINGS: No acute fracture or dislocation. The joint spaces are relatively thick soft tissue densi ty or radiopaque retained foreign. No large joint effusion. Impression: No acute fracture or dislocation in the right knee
== END 2017-09-01 12:36 | disposition home or self-care (01) ==
LOC: ED 09:38
DX: S86.911A Strain of unspecified muscle(s) and tendon(s) at lower leg level, right leg, initial encounter (principal); X50.1XXA Overexertion from prolonged static or awkward postures, initial encounter
CPT/HCPCS: 96372; 99282

== ENCOUNTER 2017-09-08 19:12 | Emergency (ER) ==
[2017-09-08 19:12] VITALS: BMI 33.2
[2017-09-08 19:18] VITALS: BP 145/93; TEMP 98.1
== END 2017-09-08 20:29 | disposition left against medical advice (07) ==
LOC: ED 19:12
DX: M25.569 Pain in unspecified knee (principal)

== ENCOUNTER 2017-09-11 16:37 | Emergency (ER) | payer OTHER ==
[2017-09-11 16:50] VITALS: BP 131/89; TEMP 97.6; BMI 33.7
--- NOTE | 2017-09-11 17:27 | DI ---
EXAM: Three views of the left foot HISTORY: Injury TECHNIQUE: And a lateral, oblique views of the left foot were obtained. FINDINGS: No acute fractures are seen. There is anatomic alignment. The soft tissues are normal. There are no erosions. IMPRESSION: No acute fracture dislocation seen within the left foot.
--- NOTE | 2017-09-11 17:28 | DI ---
EXAM: Left ankle three views HISTORY: Injury COMPARISON: None. FINDINGS: Soft tissue swelling is noted laterally. The ankle mortise and talar dome are intact.. T here is no acute fracture or dislocation. There is a plantar calcaneal spur. IMPRESSION: Soft tissue swelling is noted laterally. No acute fracture or dislocation Plantar calcaneal spur
--- NOTE | 2017-09-11 17:39 | ED.PDOC ---
General ED Provider: Dr. OSIEL GONZALEZ Chief Complaint: Ankle Pain/Injury Stated Complaint: ANKLE, FOOT PAIN Time Seen by Physician: 16:40 Information Source: Patient Exam Limitations: No limitations Primary Care Provider: JOEL CARMEN Nursing and Triage Documentation Reviewed and Agree: Yes Reviewed sepsis parameters & appropriate labs ordered?: Yes System Inflammatory Response Syndrome: Not Applicable Sepsis Protocol: For patient's 13 years and over: Temp is 96.8 and below OR 101 and greater Pulse >90 BPM Resp >20/minute Acutely Altered Mental Status Are patient's symptoms suggestive of a new infection, such as: -Pneumonia -Skin, Soft Tissue -Endocarditis -UTI -Bone, Joint Infection -Implantable Device -Acute Abdominal Infection -Wound Infection -Meningitis -Blood Stream Catheter Infection -Unknown System Inflammatory Response Syndrome: Not Applicable Musculoskeletal Complaint Exam - Ankle/Foot Complaint/Exam Location of Injury: Reports: Left, Ankle, Foot Mechanism of Injury: Reports: Trauma (FALL) Onset/Duration: TODAY Symptoms Are: Reports: Still present Onset of Pain: Reports: Minutes Initial Severity: Mild Current Severity: Mild Location: Reports: Discrete Character: Reports: Aching Alleviating: Reports: Rest, Position Aggravating: Reports: Movement Able to Bear Weight: Yes Associated Signs and Symptoms: Denies: Swelling, Redness, Bruising, Fever, Weakness, Numbness, Tingling Gout Risk Factors: Reports: None Related Surgical History: Reports: None Lower Extremity Findings: Absent: Swelling, Ecchymosis, Abnormal contour, Ligamentous instability Achilles Tendon Abnormality: No Tenderness: Present: Midfoot Differential Diagnosis: Closed Fracture Review of Systems - Review Of Systems Constitutional: Reports: No symptoms Eyes: Reports: No symptoms Ears, Nose, Mouth, Throat: Reports: No symptoms Respiratory: Reports: No symptoms Cardiac: Reports: No symptoms GI: Reports: No symptoms : Reports: No symptoms Musculoskeletal: Reports: Joint pain (ANKLE PAIN) Skin: Reports: No symptoms Neurological: Reports: No symptoms Endocrine: Reports: No symptoms Hematologic/Lymphatic: Reports: No symptoms All Other Systems: Reviewed and Negative Past Medical History - Past Medical History Previously Healthy: No Endocrine: Reports: None Cardiovascular: Reports: Hypertension Respiratory: Reports: None Hematological: Reports: None Gastrointestinal: Reports: None Genitourinary: Reports: None Neuro/Psych: Reports: Anxiety, Depression, PTSD Musculoskeletal: Reports: None Cancer: Reports: None Last Menstrual Period: Other Pertinent Past Medical History: hives with ultram, shingles. - Surgical History General Surgical History: Reports: Hysterectomy ( DX LAP, HYST 2011), Cholecystectomy (2006), Tonsillectomy, Orthopedic (CLUB FOOT RIGHT CORRECTED) - Family History Family History: Reports: Unknown - Social History Smoking Status: Current every day smoker, Light tobacco smoker Hx Substance Use: No Alcohol Screening: None Physical Exam - Physical Exam Appearance: Well-appearing, No pain distress, Well-nourished Eyes: FARHAN, EOMI, Conjunctiva clear ENT: Ears normal, Nose normal, Oropharynx normal Respiratory: Airway patent, Breath sounds clear, Breath sounds equal, Respirations nonlabored Cardiovascular: RRR, Pulses normal, No rub, No murmur GI/: Soft, Nontender, No masses, Bowel sounds normal, No Organomegaly Musculoskeletal: Normal strength, ROM intact, No edema, No calf tenderness Skin: Warm, Dry, Normal color Neurological: Sensation intact, Motor intact, Reflexes intact, Cranial nerves intact, Alert, Oriented Psychiatric: Affect appropriate, Mood appropriate Critical Care Note - Critical Care Note Total Time (mins): 0 Course - Course Orders, Labs, Meds: Orders Category Date Time Status ANKLE, LEFT MIN 3 VIEWS Stat RADS 09/11/17 16:56 Completed FOOT, LEFT 3 VIEWS Stat RADS 09/11/17 16:56 Completed Vital Signs: Temp Pulse Resp BP Pulse Ox 09/11/17 16:39 97.6 F 81 20 131/89 98 Departure - Departure Time of Disposition: 17:39 Disposition: HOME SELF-CARE Discharge Problem: Ankle pain Instructions: Ankle Sprain (ED) Condition: Good Pt referred to PMD for follow-up: Yes IPMP verified?: No Additional Instructions: Please call your Family Physician as soon as possible to schedule a follow-up appointment. Allergies/Adverse Reactions: Allergies ciprofloxacin [From Cipro] Adverse Reaction (Verified 09/11/17 16:47) tramadol [From Ultram] Adverse Reaction (Verified 09/11/17 16:47) Home Medications: Ambulatory Orders Citalopram Hydrobromide [Celexa] 40 mg PO DAILY 04/08/17 Doxepin HCl 10 mg PO BEDTIME 06/06/17 Rizatriptan Benzoate [Maxalt] 10 mg PO BID PRN 09/01/17
== END 2017-09-11 18:17 | disposition home or self-care (01) ==
LOC: ED 16:37
DX: S93.402A Sprain of unspecified ligament of left ankle, initial encounter (principal); W19.XXXA Unspecified fall, initial encounter; F17.210 Nicotine dependence, cigarettes, uncomplicated
CPT/HCPCS: 99283

== ENCOUNTER 2017-10-03 12:20 | Emergency (ER) ==
[2017-10-03 12:23] VITALS: BP 152/79; TEMP 97.7; BMI 32.4
--- NOTE | 2017-10-03 13:29 | ED.PDOC ---
General ED Provider: Dr. TOMASA LONDON Chief Complaint: Ankle Pain/Injury Stated Complaint: Severe pain in lt ankle: Twisted lt ankle several weeks ago, eval her in ER, treated and released. Using crutches and swellling better but still having severe pain Time Seen by Physician: 13:35 Mode of Arrival: Walk-In Information Source: Patient Exam Limitations: No limitations Primary Care Provider: JOEL CARMEN Nursing and Triage Documentation Reviewed and Agree: Yes Reviewed sepsis parameters & appropriate labs ordered?: Yes System Inflammatory Response Syndrome: Not Applicable Sepsis Protocol: For patient's 13 years and over: Temp is 96.8 and below OR 101 and greater Pulse >90 BPM Resp >20/minute Acutely Altered Mental Status Are patient's symptoms suggestive of a new infection, such as: -Pneumonia -Skin, Soft Tissue -Endocarditis -UTI -Bone, Joint Infection -Implantable Device -Acute Abdominal Infection -Wound Infection -Meningitis -Blood Stream Catheter Infection -Unknown Musculoskeletal Complaint Exam - Ankle/Foot Complaint/Exam Location of Injury: Reports: Left, Ankle, Foot Symptoms Are: Reports: Still present, Worse Onset of Pain: Reports: Immediate Initial Severity: Moderate Current Severity: Moderate Location: Reports: Diffuse Character: Reports: Sharp, Dull, Throbbing Alleviating: Reports: Rest, Cold Aggravating: Reports: Movement, Weight bearing Able to Bear Weight: Yes (with difficulty) Associated Signs and Symptoms: Reports: Swelling Related History: Reports: Similar episode Gout Risk Factors: Reports: None Related Surgical History: Reports: None Lower Extremity Findings: Present: Swelling, Ligamentous instability Achilles Tendon Abnormality: No Tenderness: Present: Lateral malleolus, Heel Limited Range of Motion: Present: Eversion, Plantarflexion Ankle/Foot Picture: 1 - Pain to palpation with edema 2 - pain to palpation Differential Diagnosis: Closed Fracture Review of Systems - Review Of Systems Constitutional: Reports: No symptoms Eyes: Reports: No symptoms Ears, Nose, Mouth, Throat: Reports: No symptoms Respiratory: Reports: No symptoms Cardiac: Reports: No symptoms GI: Reports: No symptoms : Reports: No symptoms Musculoskeletal: Reports: No symptoms, Joint pain Skin: Reports: No symptoms Neurological: Reports: No symptoms Endocrine: Reports: No symptoms Hematologic/Lymphatic: Reports: No symptoms All Other Systems: Reviewed and Negative Past Medical History - Past Medical History Previously Healthy: No Endocrine: Reports: None Cardiovascular: Reports: Hypertension Respiratory: Reports: None Hematological: Reports: None Gastrointestinal: Reports: None Genitourinary: Reports: None Neuro/Psych: Reports: Anxiety, Depression, PTSD Musculoskeletal: Reports: None Cancer: Reports: None Last Menstrual Period: none Other Pertinent Past Medical History: hives with ultram, shingles. - Surgical History General Surgical History: Reports: Hysterectomy ( DX LAP, HYST 2011), Cholecystectomy (2005), Tonsillectomy, Orthopedic (CLUB FOOT RIGHT CORRECTED) - Family History Family History: Reports: Unknown - Social History Smoking Status: Former smoker Hx Substance Use: No Alcohol Screening: None Physical Exam - Physical Exam Appearance: Well-appearing, No pain distress, Well-nourished Ill-appearing: None Pain Distress: None Eyes: FARHAN, EOMI, Conjunctiva clear ENT: Ears normal, Nose normal, Oropharynx normal Respiratory: Airway patent, Breath sounds clear, Breath sounds equal, Respirations nonlabored Cardiovascular: RRR, Pulses normal, No rub, No murmur GI/: Soft, Nontender, No masses, Bowel sounds normal, No Organomegaly Musculoskeletal: Normal strength, ROM intact, No edema, No calf tenderness, Edema (swelling /pain to palpation ) Skin: Warm, Dry, Normal color Neurological: Sensation intact, Motor intact, Reflexes intact, Cranial nerves intact, Alert, Oriented Psychiatric: Affect appropriate, Mood appropriate Re-Evaluation - Re-Evaluation Time of Re-Evaluation: 15:25 (splint applied) Status: Improved Additional Comments: Interpretaton of images discussed Critical Care Note - Critical Care Note Total Time (mins): 0 Course - Course Orders, Labs, Meds: Orders Category Date Time Status Splint [ED SPLINT APPLICATION] .ONCE EMERGENCY 10/03/17 14:[address] ANKLE LEFT WITHOUT CONTRAST Stat RADS 10/03/17 13:29 Completed Vital Signs: Temp Pulse Resp BP Pulse Ox 10/03/17 12:20 97.7 F 94 H 18 152/79 H 97 Departure - Departure Time of Disposition: 15:30 Disposition: HOME SELF-CARE Discharge Problem: Fracture, calcaneus closed, Fx lateral malleolus-closed, Left ankle sprain Instructions: Calcaneal Fracture (ED), Ankle Sprain (ED) Condition: Good Pt referred to PMD for follow-up: Yes IPMP verified?: No Additional Instructions: Use splint and crutches Pain meds as directed Seek outpatient orthopedic follow up and pcp followup in next week Allergies/Adverse Reactions: Allergies ciprofloxacin [From Cipro] Adverse Reaction (Verified 10/03/17 12:25) tramadol [From Ultram] Adverse Reaction (Verified 10/03/17 12:25) Home Medications: Ambulatory Orders Citalopram Hydrobromide [Celexa] 40 mg PO DAILY 04/08/17 Doxepin HCl 10 mg PO BEDTIME 06/06/17 Rizatriptan Benzoate [Maxalt] 10 mg PO BID PRN 09/01/17 Hydrocodone/Acetaminophen [[place] 5-325 Tablet] 1 each PO Q4-6H PRN #10 tablet Disposition Discussed With: Patient
--- NOTE | 2017-10-03 14:05 | CT ---
EXAM: CT of the left ankle without contrast History: Left ankle pain and swelling with trauma. Comparison: Left ankle radiograph 09/11/2017 Technique: Multiplanar CT images through the left ankle were obtained without the administration of IV contrast Findings: There is a mildly displaced chip/avulsion fracture of the posterior lateral calcaneus and is probably acute. A few small well corticated ossific fragment seen adjacent to the fibular tip comp atible with old trauma. There is mild to moderate lateral soft tissue swelling and mild medial soft tissue swelling. No dislocation. Joint spaces are relatively preserved. Impression: 1. Chip/avulsion fracture of the posterior lateral calcaneus. 2. Small well corticated ossific densities adjacent to the fibular tip most compatible with old trau ma. 3. Mild to moderate lateral soft tissue swelling and mild medial soft tissue swelling.
== END 2017-10-03 15:56 | disposition home or self-care (01) ==
LOC: ED 12:20
DX: S92.002A Unspecified fracture of left calcaneus, initial encounter for closed fracture (principal); S93.402D Sprain of unspecified ligament of left ankle, subsequent encounter; X50.1XXD Overexertion from prolonged static or awkward postures, subsequent encounter
CPT/HCPCS: 99283

== ENCOUNTER 2017-10-09 10:52 | Emergency (ER) ==
[2017-10-09 10:57] VITALS: BP 150/94; TEMP 98.6; BMI 33.9
--- NOTE | 2017-10-09 11:29 | ED.PDOC ---
General ED Provider: Dr. OSIEL GONZALEZ Chief Complaint: Foot Pain/Injury Stated Complaint: left foot injury Time Seen by Physician: 11:00 (seen with yomi champion RN at all times ) Mode of Arrival: Walk-In Information Source: Patient Exam Limitations: No limitations Primary Care Provider: JOEL CARMEN Nursing and Triage Documentation Reviewed and Agree: Yes Does patient meet sepsis criteria?: No If yes, has appropriate treatment been initiated?: No System Inflammatory Response Syndrome: Not Applicable Sepsis Protocol: For patient's 13 years and over: Temp is 96.8 and below OR 101 and greater Pulse >90 BPM Resp >20/minute Acutely Altered Mental Status Are patient's symptoms suggestive of a new infection, such as: -Pneumonia -Skin, Soft Tissue -Endocarditis -UTI -Bone, Joint Infection -Implantable Device -Acute Abdominal Infection -Wound Infection -Meningitis -Blood Stream Catheter Infection -Unknown Musculoskeletal Complaint Exam - Ankle/Foot Complaint/Exam Location of Injury: Reports: Left, Ankle, Foot Mechanism of Injury: Reports: Trauma Onset/Duration: 1 dayago fall related injury has an old fx last week Symptoms Are: Reports: Still present Onset of Pain: Reports: Hours Initial Severity: Mild Current Severity: Mild Location: Reports: Discrete Character: Reports: Aching Alleviating: Reports: Rest Aggravating: Reports: Movement Able to Bear Weight: Yes Associated Signs and Symptoms: Denies: Swelling, Redness, Bruising, Fever, Weakness, Numbness, Tingling Gout Risk Factors: Reports: None Related Surgical History: Reports: None Lower Extremity Findings: Absent: Swelling, Ecchymosis, Abnormal contour Tenderness: Present: Lateral malleolus, Midfoot Differential Diagnosis: Closed Fracture, Sprain, Strain Review of Systems - Review Of Systems Constitutional: Reports: No symptoms Eyes: Reports: No symptoms Ears, Nose, Mouth, Throat: Reports: No symptoms Respiratory: Reports: No symptoms Cardiac: Reports: No symptoms GI: Reports: No symptoms : Reports: No symptoms Musculoskeletal: Reports: Joint pain (left ankle) Skin: Reports: No symptoms Neurological: Reports: No symptoms Endocrine: Reports: No symptoms Hematologic/Lymphatic: Reports: No symptoms All Other Systems: Reviewed and Negative Past Medical History - Past Medical History Previously Healthy: No Endocrine: Reports: None Cardiovascular: Reports: Hypertension Respiratory: Reports: None Hematological: Reports: None Gastrointestinal: Reports: None Genitourinary: Reports: None Neuro/Psych: Reports: Anxiety, Depression, PTSD Musculoskeletal: Reports: None Cancer: Reports: None Last Menstrual Period: none Other Pertinent Past Medical History: hives with ultram, shingles. - Surgical History General Surgical History: Reports: Hysterectomy ( DX LAP, HYST 2011), Cholecystectomy (2005), Tonsillectomy, Orthopedic (CLUB FOOT RIGHT CORRECTED) - Family History Family History: Reports: Unknown - Social History Smoking Status: Former smoker Hx Substance Use: No Alcohol Screening: None Physical Exam - Physical Exam Appearance: Well-appearing, No pain distress, Well-nourished Eyes: FARHAN, EOMI, Conjunctiva clear ENT: Ears normal, Nose normal, Oropharynx normal Respiratory: Airway patent, Breath sounds clear, Breath sounds equal, Respirations nonlabored Cardiovascular: RRR, Pulses normal, No rub, No murmur GI/: Soft, Nontender, No masses, Bowel sounds normal, No Organomegaly Musculoskeletal: Normal strength (PLEASE SEE PHOTOS OF THE FOOT SUBMITTED ), No edema, Limited ROM (left ankle) Skin: Warm, Dry, Normal color Neurological: Sensation intact, Motor intact, Reflexes intact, Cranial nerves intact, Alert, Oriented Psychiatric: Affect appropriate, Mood appropriate Interpretation - Radiology Interpretation Radiology Interpretation By: Radiologist Critical Care Note - Critical Care Note Total Time (mins): 0 Course - Course Orders, Labs, Meds: Orders Category Date Time Status MAHNAZ [ED MAHNAZ WRAP] .ONCE EMERGENCY 10/09/17 11:38 Ordered ANKLE, LEFT MIN 3 VIEWS Stat RADS 10/09/17 11:03 Completed FOOT, LEFT 3 VIEWS Stat RADS 10/09/17 11:03 Completed Vital Signs: Temp Pulse Resp BP Pulse Ox 10/09/17 10:52 98.6 F 90 18 150/94 H 96 Departure - Departure Time of Disposition: 12:00 (discussion made with nurse present to keep mahnaz on use crutches follow up with your MD as soon as possible) Disposition: HOME SELF-CARE Discharge Problem: Injury of foot Sprain of foot, left Qualifiers: Encounter type: initial encounter Qualified Code(s): S93.602A - Unspecified sprain of left foot, initial encounter Instructions: Ankle Sprain (ED), Ankle Sprain (DC), Foot Sprain (ED) Condition: Good Pt referred to PMD for follow-up: Yes IPMP verified?: No Additional Instructions: Please call your Family Physician as soon as possible to schedule a follow-up appointment. USE YOUR CRUTCHES FOLLOW UP WITH YOUR MD . Allergies/Adverse Reactions: Allergies ciprofloxacin [From Cipro] Adverse Reaction (Verified 10/09/17 10:57) tramadol [From Ultram] Adverse Reaction (Verified 10/09/17 10:57) Home Medications: Ambulatory Orders Citalopram Hydrobromide [Celexa] 40 mg PO DAILY 04/08/17 Doxepin HCl 10 mg PO BEDTIME 06/06/17 Rizatriptan Benzoate [Maxalt] 10 mg PO BID PRN 09/01/17 Disposition Discussed With: Patient
--- NOTE | 2017-10-09 11:37 | DI ---
EXAM: Three views of the left ankle. History: Left ankle trauma. Comparison: Left ankle radiograph 09/11/2017 Findings: Seen on the lateral view, there is a linear radiodensity seen just superior to the posteri or calcaneus. No fracture lines are identified. No dislocation. Small well corticated ossific densi ties seen adjacent to the distal fibula probably related to old trauma. Impression: 1. Linear radiodensity seen just superior to the posterior calcaneus is nonspecific but cannot exclu de a chip/avulsion fracture. Correlate with point tenderness and consider further evaluation with CT .
--- NOTE | 2017-10-09 11:38 | DI ---
EXAM: Three views of the left foot. History: Left foot trauma. Comparison: Left ankle radiograph 10/09/2017 Findings: A linear radiodensity seen superior to the posterior calcaneus. No fracture lines are iden tified. No dislocation. Tiny plantar spur. Joint spaces are relatively preserved. Impression: A linear radiodensity seen superior to the posterior calcaneus is nonspecific but cannot exclude a chip/avulsion fracture. Correlate with point tenderness and consider further evaluation w ith CT
== END 2017-10-09 11:45 | disposition home or self-care (01) ==
LOC: ED 10:52
DX: S93.602A Unspecified sprain of left foot, initial encounter (principal); W19.XXXA Unspecified fall, initial encounter
CPT/HCPCS: 99282

== ENCOUNTER 2017-11-26 12:52 | Emergency (ER) ==
[2017-11-26 12:56] VITALS: BP 133/87; TEMP 96.9; BMI 34.7
--- NOTE | 2017-11-26 13:24 | ED.PDOC ---
General ED Provider: Dr. TOMASA LONDON Chief Complaint: Foot Pain/Injury Stated Complaint: PATIENT STATES THAT SHE HAS NOTICED A NODULE ON THE INNER ASPECT OF HER RT ANKLE/FOOT FOR PAST 2- 3 WEEKS. THE NODULE HAS BECOME PAINFUL FOR THE PAST 24 HRS CAUSING EXTREME PAIN ON THE INSIDE OF HER RIGHT ANKLE WHERE IT IS LOCATED. PATIENT REPORTS THAT IT IS PAINFUL TO THE TOUCH. Time Seen by Physician: 13:20 Mode of Arrival: Walk-In Information Source: Patient Exam Limitations: No limitations Primary Care Provider: ASHLEY MEEK Nursing and Triage Documentation Reviewed and Agree: Yes Does patient meet sepsis criteria?: No System Inflammatory Response Syndrome: Not Applicable Sepsis Protocol: For patient's 13 years and over: Temp is 96.8 and below OR 101 and greater Pulse >90 BPM Resp >20/minute Acutely Altered Mental Status Are patient's symptoms suggestive of a new infection, such as: -Pneumonia -Skin, Soft Tissue -Endocarditis -UTI -Bone, Joint Infection -Implantable Device -Acute Abdominal Infection -Wound Infection -Meningitis -Blood Stream Catheter Infection -Unknown Musculoskeletal Complaint Exam - Ankle/Foot Complaint/Exam Location of Injury: Reports: Right, Ankle Mechanism of Injury: Reports: No known trauma Onset/Duration: 3 WEEKS Symptoms Are: Reports: Still present Onset of Pain: Reports: Hours (24) Initial Severity: Moderate Current Severity: Severe Location: Reports: Discrete Character: Reports: Aching, Throbbing Alleviating: Reports: Rest Aggravating: Reports: Movement, Weight bearing Able to Bear Weight: Yes Associated Signs and Symptoms: Reports: Swelling Gout Risk Factors: Reports: None Related Surgical History: Reports: None Lower Extremity Findings: Present: Swelling Achilles Tendon Abnormality: No Tenderness: Present: Midfoot, Metatarsals Limited Range of Motion: Present: Inversion, Plantarflexion Differential Diagnosis: Contusion, Strain, Tendonitis Review of Systems - Review Of Systems Constitutional: Reports: No symptoms Eyes: Reports: No symptoms Ears, Nose, Mouth, Throat: Reports: No symptoms Respiratory: Reports: No symptoms Cardiac: Reports: No symptoms GI: Reports: No symptoms : Reports: No symptoms Musculoskeletal: Reports: No symptoms, Joint pain Skin: Reports: No symptoms Neurological: Reports: No symptoms Endocrine: Reports: No symptoms Hematologic/Lymphatic: Reports: No symptoms All Other Systems: Reviewed and Negative Past Medical History - Past Medical History Previously Healthy: No Endocrine: Reports: None Cardiovascular: Reports: Hypertension Respiratory: Reports: None Hematological: Reports: None Gastrointestinal: Reports: None Genitourinary: Reports: None Neuro/Psych: Reports: Anxiety, Depression, PTSD Musculoskeletal: Reports: None, Joint Pain Cancer: Reports: None Last Menstrual Period: HYSTERECTOMY Other Pertinent Past Medical History: hives with ultram, shingles. - Surgical History General Surgical History: Reports: Hysterectomy ( DX LAP, HYST 2011), Cholecystectomy (2006), Tonsillectomy, Orthopedic (CLUB FOOT RIGHT CORRECTED) - Family History Family History: Reports: Unknown - Social History Smoking Status: Former smoker Hx Substance Use: No Alcohol Screening: None - Immunizations Tetanus Shot up to Date: Yes Physical Exam - Physical Exam Appearance: Well-appearing, No pain distress, Well-nourished Eyes: FARHAN, EOMI, Conjunctiva clear ENT: Ears normal, Nose normal, Oropharynx normal Respiratory: Airway patent, Breath sounds clear, Breath sounds equal, Respirations nonlabored Cardiovascular: RRR, Pulses normal, No rub, No murmur GI/: Soft, Nontender, No masses, Bowel sounds normal, No Organomegaly Musculoskeletal: Normal strength (TENDERNESS TO PALPATION OF RT ANKLE/FIRST METATARSAL REGION ), ROM intact, No edema, No calf tenderness Skin: Warm, Dry, Normal color Neurological: Sensation intact, Motor intact, Reflexes intact, Cranial nerves intact, Alert, Oriented Psychiatric: Affect appropriate, Mood appropriate Interpretation - Radiology Interpretation Radiology Results: No acute changes Critical Care Note - Critical Care Note Total Time (mins): 0 Course - Course Orders, Labs, Meds: Orders Category Date Time Status Ketorolac Tromethamine [Toradol] MEDS 11/26/17 13:31 Discontinued 30 mg IM ONCE STA FOOT, RIGHT 3 VIEWS Stat RADS 11/26/17 13:33 Ordered Medications Discontinued Medications Generic Name Dose Route Start Last Admin Trade Name Freq PRN Reason Stop Dose Admin Ketorolac Tromethamine 30 mg 11/26/17 13:31 11/26/17 13:43 Toradol IM 11/26/17 13:32 30 mg ONCE STA Administration Vital Signs: Temp Pulse Resp BP Pulse Ox 11/26/17 12:53 96.9 F L 83 18 133/87 98 Departure - Departure Time of Disposition: 13:50 Disposition: HOME SELF-CARE Discharge Problem: Ankle pain, right, Metatarsalgia, left foot Instructions: Metatarsalgia (DC), Arthralgia (ED) Condition: Good Pt referred to PMD for follow-up: Yes ([place] phy) IPMP verified?: No Additional Instructions: Ice, elevate Use MAHNAZ wrap for comfort and support Follow up with [place] physician (PCP) for additional evaluation Allergies/Adverse Reactions: Allergies ciprofloxacin [From Cipro] Adverse Reaction (Verified 11/26/17 12:56) tramadol [From Ultram] Adverse Reaction (Verified 11/26/17 12:56) Home Medications: Ambulatory Orders Citalopram Hydrobromide [Celexa] 40 mg PO DAILY 04/08/17 Doxepin HCl 10 mg PO BEDTIME 06/06/17 Rizatriptan Benzoate [Maxalt] 10 mg PO BID PRN 09/01/17 Diclofenac Sodium 50 mg PO BID #30 tablet. 11/26/17 Disposition Discussed With: Patient (Explained results of xrays and recommedations)
[2017-11-26] MEDS ORDERED: TORADOL IM STA (13:31)
--- NOTE | 2017-11-26 14:17 | DI ---
Exam: Three views of the right foot. Reason for exam: Pain in left first metatarsal phalangeal joint space. Comparison: None available. FINDINGS: No acute fracture or malalignment. The joint spaces are well maintained. No unexplained calcific soft tissue density or radiopaque retained foreign body. Impression: No acute fracture or malalignment is seen in the right foot.
== END 2017-11-26 14:04 | disposition home or self-care (01) ==
LOC: ED 12:52
DX: M25.571 Pain in right ankle and joints of right foot (principal); M77.41 Metatarsalgia, right foot
CPT/HCPCS: 96372; 99283

== ENCOUNTER 2017-12-04 15:06 | Emergency (ER) ==
[2017-12-04 15:14] VITALS: BP 131/85; TEMP 97.9; BMI 34.3
--- NOTE | 2017-12-04 15:24 | ED.PDOC ---
General ED Provider: Dr. OSIEL GONZALEZ Chief Complaint: Rash Stated Complaint: rash post scalp Time Seen by Physician: 15:15 (seen with patricia at all times ) Mode of Arrival: Walk-In Information Source: Patient Exam Limitations: No limitations Primary Care Provider: ASHLEY MEEK Nursing and Triage Documentation Reviewed and Agree: Yes Does patient meet sepsis criteria?: No If yes, has appropriate treatment been initiated?: No System Inflammatory Response Syndrome: Not Applicable Sepsis Protocol: For patient's 13 years and over: Temp is 96.8 and below OR 101 and greater Pulse >90 BPM Resp >20/minute Acutely Altered Mental Status Are patient's symptoms suggestive of a new infection, such as: -Pneumonia -Skin, Soft Tissue -Endocarditis -UTI -Bone, Joint Infection -Implantable Device -Acute Abdominal Infection -Wound Infection -Meningitis -Blood Stream Catheter Infection -Unknown Skin Complaint Exam - Skin Rash/Itching Complaint/Exam Onset/Duration: 1 day Symptoms Are: Still present Initial Severity: Mild Current Severity: Mild Location: post scalp along the hair line Potential Exposures: Reports: Unknown Aggravating: Reports: None Alleviating: Reports: None Associated Signs and Symptoms: Denies: Difficulty breathing, Fever, Chills Skin Findings: Present: Vesicles Differential Diagnoses: Other (scap psoraisis ) Review of Systems - Review Of Systems Constitutional: Reports: No symptoms Eyes: Reports: No symptoms Ears, Nose, Mouth, Throat: Reports: No symptoms Respiratory: Reports: No symptoms Cardiac: Reports: No symptoms GI: Reports: No symptoms : Reports: No symptoms Musculoskeletal: Reports: No symptoms Skin: Reports: Rash (post scalp patch with vesicles ) Neurological: Reports: No symptoms Endocrine: Reports: No symptoms Hematologic/Lymphatic: Reports: No symptoms All Other Systems: Reviewed and Negative Past Medical History - Past Medical History Previously Healthy: No Endocrine: Reports: None Cardiovascular: Reports: Hypertension Respiratory: Reports: None Hematological: Reports: None Gastrointestinal: Reports: None Genitourinary: Reports: None Neuro/Psych: Reports: Anxiety, Depression, PTSD Musculoskeletal: Reports: None, Joint Pain Cancer: Reports: None Last Menstrual Period: n/a Other Pertinent Past Medical History: hives with ultram, shingles. - Surgical History General Surgical History: Reports: Hysterectomy ( DX LAP, HYST 2011), Cholecystectomy (2005), Tonsillectomy, Orthopedic (CLUB FOOT RIGHT CORRECTED) - Family History Family History: Reports: Unknown - Social History Smoking Status: Current some day smoker, Light tobacco smoker Hx Substance Use: No Alcohol Screening: None - Immunizations Tetanus Shot up to Date: Yes Physical Exam - Physical Exam Appearance: Well-appearing, No pain distress, Well-nourished Eyes: FARHAN, EOMI, Conjunctiva clear ENT: Ears normal, Nose normal, Oropharynx normal Respiratory: Airway patent, Breath sounds clear, Breath sounds equal, Respirations nonlabored Cardiovascular: RRR, Pulses normal, No rub, No murmur GI/: Soft, Nontender, No masses, Bowel sounds normal, No Organomegaly Musculoskeletal: Normal strength, ROM intact, No edema, No calf tenderness Skin: Warm, Dry (patchy scaly rash post scalp 2cm ) Neurological: Sensation intact, Motor intact, Reflexes intact, Cranial nerves intact, Alert, Oriented Psychiatric: Affect appropriate, Mood appropriate Critical Care Note - Critical Care Note Total Time (mins): 0 Course - Course Vital Signs: Temp Pulse Resp BP Pulse Ox 12/04/17 15:07 97.9 F 90 16 131/85 97 Departure - Departure Time of Disposition: 15:24 Disposition: HOME SELF-CARE Discharge Problem: Psoriasis of scalp Instructions: Psoriasis (ED), [place] Tar (On the skin) Condition: Good Pt referred to PMD for follow-up: Yes IPMP verified?: No Additional Instructions: Please call your Family Physician as soon as possible to schedule a follow-up appointment. see a appliance installer Allergies/Adverse Reactions: Allergies ciprofloxacin [From Cipro] Adverse Reaction (Verified 11/26/17 12:56) tramadol [From Ultram] Adverse Reaction (Verified 11/26/17 12:56) Home Medications: Ambulatory Orders Citalopram Hydrobromide [Celexa] 40 mg PO DAILY 04/08/17 Doxepin HCl 10 mg PO BEDTIME 06/06/17 Rizatriptan Benzoate [Maxalt] 10 mg PO BID PRN 09/01/17 Sulfamethoxazole/Trimethoprim [Bactrim Ds 800/160 mg] 1 tab PO Q12HR #10 tablet 12/04/17
== END 2017-12-04 15:38 | disposition home or self-care (01) ==
LOC: ED 15:06
DX: L40.9 Psoriasis, unspecified (principal)
CPT/HCPCS: 99282

== ENCOUNTER 2017-12-18 08:29 | Outpatient (CLI) ==
--- NOTE | 2017-12-18 09:13 | MAMMO ---
EXAM: Bilateral digital diagnostic mammogram (2-D and 3-D). History: Left nipple discharge. Comparison: None available. Findings: MLO and CC views of bilateral breasts demonstrate scattered fibroglandular breast parenchy ma. There are no dominant masses, no suspicious microcalcifications and no architectural distortions . CAD was reviewed by the radiologist. Tomosynthesis was performed. Impression: Although no mammographic abnormalities are identified within the left breast recommend further evaluation with ultrasound for the nipple discharge. BIRADS 0
--- NOTE | 2017-12-18 10:12 | US ---
EXAM: Left breast ultrasound. History: Left breast nipple discharge. Comparison: Bilateral mammogram 12/18/2017 Technique: Multiple sonographic images through the left breast were obtained. Color duplex Doppler was used to interrogate vascular flow. Findings: No masses, cysts or fluid collections identified. Impression: No sonographic abnormalities. Follow-up with ACR/ACS guidelines. BIRADS 2
== END 2017-12-18 08:30 | disposition home or self-care (01) ==
LOC: RAD 08:29
PROVIDERS: ATTEND Family Medicine
DX: N64.52 Nipple discharge (principal)

== ENCOUNTER 2018-02-14 19:27 | Emergency (ER) ==
[2018-02-14 19:32] VITALS: BP 159/80; TEMP 98.2; BMI 34.5
--- NOTE | 2018-02-14 20:26 | ED.PDOC ---
General ED Provider: Dr. ASHLEY MEAD Chief Complaint: Headache Stated Complaint: Patient is a 37 year old female who comes to the ER with headache for two days with associated nauseated but no emesis. Also reprots sentivity to light. Time Seen by Physician: 20:26 Mode of Arrival: Walk-In Information Source: Patient Nursing and Triage Documentation Reviewed and Agree: Yes Does patient meet sepsis criteria?: No System Inflammatory Response Syndrome: Not Applicable Sepsis Protocol: For patient's 13 years and over: Temp is 96.8 and below OR 101 and greater Pulse >90 BPM Resp >20/minute Acutely Altered Mental Status Are patient's symptoms suggestive of a new infection, such as: -Pneumonia -Skin, Soft Tissue -Endocarditis -UTI -Bone, Joint Infection -Implantable Device -Acute Abdominal Infection -Wound Infection -Meningitis -Blood Stream Catheter Infection -Unknown Review of Systems - Review Of Systems Constitutional: Reports: No symptoms Eyes: Reports: Photophobia Ears, Nose, Mouth, Throat: Reports: No symptoms Respiratory: Reports: No symptoms Cardiac: Reports: No symptoms GI: Reports: No symptoms : Reports: No symptoms Musculoskeletal: Reports: No symptoms Skin: Reports: No symptoms Neurological: Reports: Anxiety, Headache Endocrine: Reports: No symptoms Hematologic/Lymphatic: Reports: No symptoms All Other Systems: Reviewed and Negative Past Medical History - Past Medical History Previously Healthy: No Endocrine: Reports: None Cardiovascular: Reports: Hypertension Respiratory: Reports: None Hematological: Reports: None Gastrointestinal: Reports: None Genitourinary: Reports: None Neuro/Psych: Reports: Migraine, Anxiety, Depression, PTSD Musculoskeletal: Reports: None, Joint Pain Cancer: Reports: None Last Menstrual Period: na Other Pertinent Past Medical History: hives with ultram, shingles. - Surgical History General Surgical History: Reports: Hysterectomy ( DX LAP, HYST 2011), Cholecystectomy (2005), Tonsillectomy, Orthopedic (CLUB FOOT RIGHT CORRECTED) - Family History Family History: Reports: Unknown - Social History Smoking Status: Current some day smoker Hx Substance Use: No Alcohol Screening: None - Immunizations Tetanus Shot up to Date: Yes Physical Exam - Physical Exam Appearance: Ill-appearing Ill-appearing: Moderate Pain Distress: Severe Eyes: FARHAN, EOMI, Conjunctiva clear ENT: Ears normal, Nose normal, Oropharynx normal Neck: Supple Respiratory: Airway patent, Breath sounds clear, Breath sounds equal, Respirations nonlabored Cardiovascular: RRR, Pulses normal, No rub, No murmur GI/: Soft, Nontender, No masses, Bowel sounds normal, No Organomegaly Musculoskeletal: Normal strength, ROM intact, No edema, No calf tenderness Skin: Warm, Dry, Normal color Neurological: Alert, Oriented Psychiatric: Anxious Re-Evaluation - Re-Evaluation Time of Re-Evaluation: 21:29 Status: Improved Vital Signs Stable: Yes Pain Level: 0/10 Critical Care Note - Critical Care Note Total Time (mins): 0 Course - Course Orders, Labs, Meds: Orders Category Date Time Status Ketorolac Tromethamine [Toradol] MEDS 02/14/18 20:31 Discontinued 60 mg IM ONCE STA Metoclopramide HCl [Reglan] MEDS 02/14/18 20:45 Discontinued 10 mg IM ONCE STA Medications Discontinued Medications Generic Name Dose Route Start Last Admin Trade Name Freq PRN Reason Stop Dose Admin Ketorolac Tromethamine 60 mg 02/14/18 20:31 02/14/18 20:53 Toradol IM 02/14/18 20:32 60 mg ONCE STA Administration Metoclopramide HCl 10 mg 02/14/18 20:45 02/14/18 20:54 Reglan IM 02/14/18 20:46 10 mg ONCE STA Administration Vital Signs: Temp Pulse Resp BP Pulse Ox 02/14/18 19:28 98.2 F 86 16 159/80 H 96 Departure - Departure Time of Disposition: 21:29 Disposition: HOME SELF-CARE Discharge Problem: Headache Migraine Qualifiers: Migraine type: without aura Status migrainosus presence: without status migrainosus Intractability: not intractable Qualified Code(s): G43.009 - Migraine without aura, not intractable, without status migrainosus Instructions: Migraine Headache (ED) Condition: Stable Pt referred to PMD for follow-up: Yes IPMP verified?: No Additional Instructions: Take medications as prescribed Follow up with PCP in 3 days Prescriptions: Butalb/Acetaminophen/Caffeine [Fioricet] 1 each PO TID PRN #15 tablet PRN Reason: Headaches Metoclopramide HCl [Reglan] 10 mg PO ONCE PRN #15 tablet PRN Reason: Nausea / Vomiting Allergies/Adverse Reactions: Allergies ciprofloxacin [From Cipro] Adverse Reaction (Verified 02/14/18 19:34) tramadol [From Ultram] Adverse Reaction (Verified 02/14/18 19:34) Home Medications: Ambulatory Orders Citalopram Hydrobromide [Celexa] 40 mg PO DAILY 04/08/17 Rizatriptan Benzoate [Maxalt] 10 mg PO BID PRN 09/01/17 Butalb/Acetaminophen/Caffeine [Fioricet] 1 each PO TID PRN #15 tablet 02/14/18 Metoclopramide HCl [Reglan] 10 mg PO ONCE PRN #15 tablet 02/14/18 Disposition Discussed With: Patient
[2018-02-14] MEDS ORDERED: TORADOL IM STA (20:31)
[2018-02-14] MEDS ORDERED: REGLAN IM STA (20:45)
[2018-02-14] MEDS ORDERED: REGLAN IM SCH (21:00)
== END 2018-02-14 21:40 | disposition home or self-care (01) ==
LOC: ED 19:27
DX: G43.009 Migraine without aura, not intractable, without status migrainosus (principal); I10 Essential (primary) hypertension; F17.210 Nicotine dependence, cigarettes, uncomplicated
CPT/HCPCS: 96372; 99282

== ENCOUNTER 2018-02-24 13:35 | Emergency (ER) ==
[2018-02-24 13:41] VITALS: BP 143/87; TEMP 97.5; BMI 35.2
--- NOTE | 2018-02-24 14:52 | ED.PDOC ---
General ED Provider: Dr. RIGOBERTO CANO Chief Complaint: Respiratory Complaint Stated Complaint: Cough; sinus congestion Time Seen by Physician: 14:40 Mode of Arrival: Walk-In Information Source: Patient Exam Limitations: No limitations Primary Care Provider: ASHLEY MEEK Nursing and Triage Documentation Reviewed and Agree: Yes Does patient meet sepsis criteria?: No System Inflammatory Response Syndrome: Not Applicable Sepsis Protocol: For patient's 13 years and over: Temp is 96.8 and below OR 101 and greater Pulse >90 BPM Resp >20/minute Acutely Altered Mental Status Are patient's symptoms suggestive of a new infection, such as: -Pneumonia -Skin, Soft Tissue -Endocarditis -UTI -Bone, Joint Infection -Implantable Device -Acute Abdominal Infection -Wound Infection -Meningitis -Blood Stream Catheter Infection -Unknown Respiratory Complaint Exam - Respiratory Complaint/Exam Onset/Duration: 6 days ago Symptoms Are: Still present Timing: Constant Initial Severity: Mild Current Severity: Moderate Location: Nose, Chest Character: Reports: Non-productive cough Aggravating: Reports: Exertion Alleviating: Reports: None Review of Systems - Review Of Systems Constitutional: Reports: Malaise Eyes: Reports: No symptoms Ears, Nose, Mouth, Throat: Reports: Nose discharge Respiratory: Reports: Cough Cardiac: Reports: Chest pain (with constant cough) All Other Systems: Reviewed and Negative Past Medical History - Past Medical History Previously Healthy: No Endocrine: Reports: None Cardiovascular: Reports: Hypertension Respiratory: Reports: None Hematological: Reports: None Gastrointestinal: Reports: None Genitourinary: Reports: None Neuro/Psych: Reports: Migraine, Anxiety, Depression, PTSD Musculoskeletal: Reports: None, Joint Pain Cancer: Reports: None Last Menstrual Period: none Other Pertinent Past Medical History: hives with ultram, shingles. - Surgical History General Surgical History: Reports: Hysterectomy ( DX LAP, HYST 2011), Cholecystectomy (2005), Tonsillectomy, Orthopedic (CLUB FOOT RIGHT CORRECTED) - Family History Family History: Reports: Unknown - Social History Smoking Status: Current some day smoker Hx Substance Use: No Alcohol Screening: None Physical Exam - Physical Exam Appearance: Well-appearing, Ill-appearing Ill-appearing: Mild Pain Distress: None Eyes: FARHAN, EOMI Neck: Supple Respiratory: Airway patent, Breath sounds clear Cardiovascular: RRR, Pulses normal Skin: Warm, Dry, Normal color Neurological: Sensation intact, Motor intact, Alert, Oriented Psychiatric: Affect appropriate, Mood appropriate Critical Care Note - Critical Care Note Total Time (mins): 15 Course - Course Orders, Labs, Meds: Lab Review 02/24/18 14:50 Influ A Molecular Assay Negative by naat Influ B Molecular Assay Negative by naat Orders Category Date Time Status FLU A/B MOLECULAR Stat LAB 02/24/18 14:50 Completed MOLECULAR GROUP A STREP Stat LAB 02/24/18 14:50 Completed CHEST, 2 VIEWS PA & LAT Stat RADS 02/24/18 14:47 Completed strep reported negative Vital Signs: Temp Pulse Resp BP Pulse Ox 02/24/18 13:35 97.5 F L 87 20 143/87 H 97 Departure - Departure Time of Disposition: 15:37 Disposition: HOME SELF-CARE Discharge Problem: Bronchitis Instructions: Acute Bronchitis (ED) Condition: Good Pt referred to PMD for follow-up: Yes (Follow up with primary care) IPMP verified?: Yes (No record) Additional Instructions: Use cough medicaition as prescribed; follow up with primary care if not better next week. Prescriptions: Codeine/Promethazine Syrup [Phenergan with Codeine 6.25/10 mg/5 ml] 5 ml PO Q6H #100 disp.syrin Allergies/Adverse Reactions: Allergies ciprofloxacin [From Cipro] Adverse Reaction (Verified 02/24/18 13:41) tramadol [From Ultram] Adverse Reaction (Verified 02/24/18 13:41) Home Medications: Ambulatory Orders Citalopram Hydrobromide [Celexa] 40 mg PO DAILY 04/08/17 Rizatriptan Benzoate [Maxalt] 10 mg PO BID PRN 09/01/17 Cholecalciferol (Vitamin D3) [Vitamin D] 1,000 unit PO DAILY 02/24/18 Codeine/Promethazine Syrup [Phenergan with Codeine 6.25/10 mg/5 ml] 5 ml PO Q6H #100 disp.syrin 02/24/18
--- NOTE | 2018-02-24 15:29 | DI ---
Exam: Two views of the chest. Comparison: CT PE protocol performed 08/14/2017. Reason for exam: Cough. FINDINGS: No pneumothorax, pleural effusion, or focal consolidation. The cardiac silhouette is not enlarged. The imaged osseous structures appear grossly unremarkable without acute fracture. Impression: No acute cardiopulmonary process.
== END 2018-02-24 15:52 | disposition home or self-care (01) ==
LOC: ED 13:35
DX: J20.9 Acute bronchitis, unspecified (principal); F17.210 Nicotine dependence, cigarettes, uncomplicated
CPT/HCPCS: 87502; 87651; 99283

== ENCOUNTER 2018-04-14 12:04 | Emergency (ER) ==
[2018-04-14 12:10] VITALS: BP 139/91; TEMP 98.8; BMI 35.9
[2018-04-14] MEDS ORDERED: ROCEPHIN IM STA (13:38)
[2018-04-14] MEDS ORDERED: LIDOCAINE HCL 1% SDV IM STA (13:38)
[2018-04-14] MEDS ORDERED: DECADRON 4 MG/ML SDV IM STA (13:38)
[2018-04-14] MEDS ORDERED: DUONEB NEB STA (13:39)
--- NOTE | 2018-04-14 14:24 | DI ---
EXAM: Two views of the chest. History: Cough. Comparison: Chest radiograph 02/24/2018 Findings: Heart size is normal. No focal consolidation. No appreciable pleural fluid and no pneumo thorax. No acute osseous abnormalities. Mild elevation of the left hemidiaphragm. Impression: No acute cardiopulmonary process
--- NOTE | 2018-04-14 14:37 | ED.PDOC ---
General ED Provider: Dr. OSIEL GONZALEZ Chief Complaint: Respiratory Complaint Stated Complaint: cough, sinus pain Time Seen by Physician: 12:10 Mode of Arrival: Walk-In Information Source: Patient Exam Limitations: No limitations Nursing and Triage Documentation Reviewed and Agree: Yes Does patient meet sepsis criteria?: No If yes, has appropriate treatment been initiated?: No System Inflammatory Response Syndrome: Not Applicable Sepsis Protocol: For patient's 13 years and over: Temp is 96.8 and below OR 101 and greater Pulse >90 BPM Resp >20/minute Acutely Altered Mental Status Are patient's symptoms suggestive of a new infection, such as: -Pneumonia -Skin, Soft Tissue -Endocarditis -UTI -Bone, Joint Infection -Implantable Device -Acute Abdominal Infection -Wound Infection -Meningitis -Blood Stream Catheter Infection -Unknown Review of Systems - Review Of Systems Constitutional: Reports: No symptoms Eyes: Reports: No symptoms Ears, Nose, Mouth, Throat: Reports: No symptoms Respiratory: Reports: No symptoms Cardiac: Reports: No symptoms GI: Reports: No symptoms : Reports: No symptoms Musculoskeletal: Reports: No symptoms Skin: Reports: No symptoms Neurological: Reports: No symptoms Endocrine: Reports: No symptoms Hematologic/Lymphatic: Reports: No symptoms All Other Systems: Reviewed and Negative Past Medical History - Past Medical History Previously Healthy: No Endocrine: Reports: None Cardiovascular: Reports: Hypertension Respiratory: Reports: None Hematological: Reports: None Gastrointestinal: Reports: None Genitourinary: Reports: None Neuro/Psych: Reports: Migraine, Anxiety, Depression, PTSD Musculoskeletal: Reports: None, Joint Pain Cancer: Reports: None Last Menstrual Period: NA Other Pertinent Past Medical History: hives with ultram, shingles. - Surgical History General Surgical History: Reports: Hysterectomy ( DX LAP, HYST 2011), Cholecystectomy (2005), Tonsillectomy, Orthopedic (CLUB FOOT RIGHT CORRECTED) - Family History Family History: Reports: Unknown - Social History Smoking Status: Current some day smoker Hx Substance Use: No Alcohol Screening: None Physical Exam - Physical Exam Appearance: Well-appearing, No pain distress, Well-nourished Eyes: FARHAN, EOMI, Conjunctiva clear ENT: Ears normal, Nose normal, Oropharynx normal (maxillary sinus tenderness) Respiratory: Airway patent, Breath sounds equal, Respirations nonlabored, Rhonchi Cardiovascular: RRR, Pulses normal, No rub, No murmur GI/: Soft, Nontender, No masses, Bowel sounds normal, No Organomegaly Musculoskeletal: Normal strength, ROM intact, No edema, No calf tenderness Skin: Warm, Dry, Normal color Neurological: Sensation intact, Motor intact, Reflexes intact, Cranial nerves intact, Alert, Oriented Psychiatric: Affect appropriate, Mood appropriate Critical Care Note - Critical Care Note Total Time (mins): 0 Course - Course Hematology/Chemistry: 04/14/18 13:45 04/14/18 13:45 Orders, Labs, Meds: Lab Review 04/14/18 04/14/18 04/14/18 13:25 13:45 13:45 WBC 8.38 RBC 4.38 Hgb 12.8 Hct 38.6 MCV 88.1 MCH 29.2 MCHC 33.2 RDW Coeff of Gricel 12.9 Plt Count 332 Immature Gran % (Auto) 0.2 Neut % (Auto) 68.0 Lymph % (Auto) 20.0 [place] % (Auto) 10.0 Eos % (Auto) 1.7 Baso % (Auto) 0.1 Immature Gran # (Auto) 0.0 Neut # (Auto) 5.7 Lymph # (Auto) 1.7 [place] # (Auto) 0.8 Eos # (Auto) 0.1 Baso # (Auto) 0.0 Sodium 137.5 Potassium 4.04 Chloride 105.8 Carbon Dioxide 26.4 Anion Gap 9.34 BUN 8.2 Creatinine 0.55 L Estimated GFR (MDRD) 125.00 BUN/Creatinine Ratio 14.90 Glucose 79.8 Calcium 9.00 Total Bilirubin 0.64 AST 24.0 ALT 20.5 Alkaline Phosphatase 73.7 Total Protein 7.69 Albumin 4.54 Globulin 3.15 Albumin/Globulin Ratio 1.44 Influ A Molecular Assay Negative by naat Influ B Molecular Assay Negative by naat Orders Category Date Time Status NEBULIZER TREATMENT Stat CARDIO 04/14/18 13:39 Completed CBC W/ AUTO DIFF Stat LAB 04/14/18 13:45 Completed COMPREHENSIVE METABOLIC PANEL Stat LAB 04/14/18 13:45 Completed FLU A/B MOLECULAR Stat LAB 04/14/18 13:25 Completed MOLECULAR GROUP A STREP Stat LAB 04/14/18 13:20 Completed Ceftriaxone Sodium [Rocephin] MEDS 04/14/18 13:38 Discontinued 1 gm IM ONCE STA Dexamethasone 4 mg/ml Inj [Decadron 4 mg/ml Sdv] MEDS 04/14/18 13:38 Discontinued 4 mg IM ONCE STA Ipratropium/Albuterol Neb [Duoneb] MEDS 04/14/18 13:39 Discontinued 1 vial NEB ONCE STA Lidocaine HCl/Pf [Lidocaine HCl 1% Sdv] MEDS 04/14/18 13:38 Discontinued 2.1 ml IM ONCE STA CHEST, 2 VIEWS PA & LAT Stat RADS 04/14/18 13:33 Completed Medications Discontinued Medications Generic Name Dose Route Start Last Admin Trade Name Josette PRN Reason Stop Dose Admin Albuterol/Ipratropium 1 vial 04/14/18 13:39 04/14/18 13:47 Duoneb NEB 04/14/18 13:40 1 vial ONCE STA Administration Ceftriaxone Sodium 1 gm 04/14/18 13:38 04/14/18 14:13 Rocephin IM 04/14/18 13:39 1 gm ONCE STA Administration Dexamethasone Sodium Phosphate 4 mg 04/14/18 13:38 04/14/18 14:11 Decadron 4 Mg/Ml Sdv IM 04/14/18 13:39 4 mg ONCE STA Administration Lidocaine HCl 2.1 ml 04/14/18 13:38 04/14/18 14:13 Lidocaine Hcl 1% Sdv IM 04/14/18 13:39 2.1 ml ONCE STA Administration Vital Signs: Temp Pulse Resp BP Pulse Ox 04/14/18 12:06 98.8 F 82 18 139/91 H 98 Departure - Departure Time of Disposition: 14:37 Disposition: HOME SELF-CARE Discharge Problem: Sinusitis Qualifiers: Sinusitis location: maxillary Chronicity: acute Recurrence: non-recurrent Qualified Code(s): J01.00 - Acute maxillary sinusitis, unspecified Condition: Good Pt referred to PMD for follow-up: Yes IPMP verified?: No Additional Instructions: Please call your Family Physician as soon as possible to schedule a follow-up appointment. Prescriptions: Amoxicillin 500 mg PO Q8HR #30 tablet Prednisone 10 mg PO DAILYWM #7 tablet Allergies/Adverse Reactions: Allergies ciprofloxacin [From Cipro] Adverse Reaction (Verified 04/14/18 12:05) tramadol [From Ultram] Adverse Reaction (Verified 04/14/18 12:05) Home Medications: Ambulatory Orders Citalopram Hydrobromide [Celexa] 40 mg PO DAILY 04/08/17 Rizatriptan Benzoate [Maxalt] 10 mg PO BID PRN 09/01/17 Cholecalciferol (Vitamin D3) [Vitamin D] 1,000 unit PO DAILY 02/24/18 Amoxicillin 500 mg PO Q8HR #30 tablet 04/14/18 Prednisone 10 mg PO DAILYWM #7 tablet 04/14/18
== END 2018-04-14 14:41 | disposition home or self-care (01) ==
LOC: ED 12:04
DX: J01.00 Acute maxillary sinusitis, unspecified (principal); I10 Essential (primary) hypertension; F17.210 Nicotine dependence, cigarettes, uncomplicated
CPT/HCPCS: 36415; 80053; 85025; 87502; 87651; 94640; 96372; 99283